=== PATIENT | female | born 1985 | race Caucasian/White ===

== ENCOUNTER 2020-04-16 12:40 | Emergency (ER) | payer OTHER, SELFPAY ==
--- NOTE | ~2020-04-16 | CT_ITS ---
EXAMINATION: CT abdomen pelvis w con DATE: 04/16/2020 14:45 INDICATION: Abdominal pain, nausea, vomiting, fever TECHNIQUE: Computed tomography (CT) of the abdomen and pelvis was performed with 100 cc Omnipaque 350 intravenous contrast. Automated exposure control and iterative reconstruction technique were employe d. Exam dose: 533.74 mGy-cm total exam DLP. COMPARISON: 02/23/2019 CT abdomen FINDINGS: The lung bases are clear. Normal heart size. No pericardial or pleural effusion. Status post cholecystectomy. The liver, spleen, pancreas, and adrenal glands and kidneys appear rose l. No bile duct or pancreatic duct dilatation. No urinary tract calculus or hydroureteronephrosis is evident. The urinary bladder and uterus are unremarkable. 1.5 cm left ovarian cyst. Adnexal areas are otherwise unremarkable. There is minimal likely physiologic free fluid in the cul-de-sac. Normal caliber of the abdominal aorta. No intraperitoneal or retroperitoneal or pelvic mass lesion or adenopathy or ascites. Status post appendectomy. No bowel obstruction. No intraperitoneal free air. Small fat-containing umbilical hernia. Included skeletal structures are unremarkable. IMPRESSION: 1.5 cm left ovarian cyst Status post cholecystectomy Status post appendectomy Reviewed, dictated and finalized at [facility]. Reviewed, dictated and finalized at location A.
[2020-04-16 12:42] VITALS: BP 134/76; PULSE 95; RESP 20; TEMP 36.6; O2SAT 100
[2020-04-16 12:54] LABS: Basophils Absolute Auto 0.1 K/mm3 (0.0-0.1); Basophils Percent Auto 0.6 % (0.2-1.2); Eosinophils Absolute Auto 0.2 K/mm3 (0-0.3); Eosinophils Percent Auto 1.4 % (0-4.4); Hemoglobin 15.1 g/dL (12.0-15.0); Immature Granulocyte Absolute 0.06 K/mm3 (0.00-0.031); Immature Granulocyte Percent A 0.5 % (0-0.5); Lymphocytes Percent Auto 25.4 % (18.3-44.2); Mean Corpuscular HGB Conc 34.3 g/dl (32-36); Mean Corpuscular Volume 87.5 fl (80-100); Mean Platelet Volume 10.1 fl (7.4-10.4); Monocytes Absolute Auto 0.8 K/mm3 (0.1-0.6); Monocytes Percent Auto 6.5 % (2.6-8.5); Neutrophils Absolute Auto 8.3 K/mm3 (1.3-6.7); Neutrophils Percent Auto 65.6 % (45.5-73.1); Platelet Count Result 385 k/mm3 (150-375); Red Blood Count 5.03 M/mm3 (4.2-5.4); Red Cell Distribution Width 12.5 % (11.5-14.5); White Blood Count 12.6 K/mm3 (4.5-10.0)
[2020-04-16 13:09] LABS: Alanine Aminotransferase 16 U/L (4-35); Alkaline Phosphatase 68 U/L (38-126); Anion Gap 13 mmol/L (8-16); Aspartate Amino Transferase 23 U/L (14-36); Bilirubin,Total 0.6 mg/dL (0.2-1.3); Blood Urea Nitrogen 13 mg/dL (7-17); Calcium 10.1 mg/dL (8.4-10.2); Carbon Dioxide 22 mmol/L (22-30); Chloride 106 mmol/L (98-107); Estimated CRCL calculation 95 ml/min; Estimated Glomerular Filt Rate > 60; Glucose 91 mg/dL (65-105); Lipase 99 U/L (23-300); Potassium 4.2 mmol/L (3.4-5.0); Sodium 141 mmol/L (137-145)
[2020-04-16] MEDS: FAMOTIDINE 20 MG/2 ML VIAL IV PUSH (14:07)
[2020-04-16] MEDS: ONDANSETRON INJ 4 MG/2 ML VIAL IV PUSH (14:07)
[2020-04-16] MEDS: SODIUM CHLORIDE 0.9% IV 1,000 ML 999 ML IV CONT (14:07)
[2020-04-16 14:29] LABS: Add Urine Microscopic? YES; Appearance Urine Cloudy (Clear); Bacteria Urine Trace /hpf; Bilirubin Urine Negative (Negative); Blood Urine 1+ (Negative); Color Urine Yellow (Yellow); Glucose Urine UA Negative (Negative); Ketones Urine 1+ mg/dL (Negative); Leukocyte Esterase Ur Negative LEU/UL (Negative); Mucus Urine Heavy /lpf; Nitrate Urine Negative (Negative); Protein Urine 1+ mg/dL (Negative); Squamous Epithelial Cell Urine Many /hpf (Few); Urobilinogen Urine Negative mg/dL (<2.0); WBC Urine 0-3 /hpf
--- NOTE | 2020-04-16 15:39 | ED.GENADULT ---
HPI - General Adult General Chief complaint: Nausea/Vomiting/Diarrhea Stated complaint: Vomiting, Fever Time Seen by Provider: 04/16/20 13:00 Source: patient and family Mode of arrival: ambulatory Limitations: no limitations History of Present Illness HPI narrative: 34-year-old with no major medical problems presents to the ER with complaints of nausea, vomiting, abdominal pain for past few days. Patient states that she was seen at [facility] ER 2 weeks ago for the same had blood work and CAT scan at that time the CT according to the patient showed mild inflammation in the stomach was given prescription for pantoprazole. However again since yesterday she has been having the same symptoms. She also states that she has been constipated. No history of fever or chills. Denies any blood in the vomitus. Onset (ago): day(s) (2) Severity: moderate Quality: aching Pain Consistency: constant Exacerbating factors: none Related Data Allergies Allergy/AdvReac Type Severity Reaction Status Date / Time No Known Allergies Allergy Verified 04/16/20 12:49 Review of Systems Review of Systems: All systems reviewed & are unremarkable except as noted in HPI and below Constitutional: Constitutional: Reports no additional constitutional complaints Eyes: Eyes: Reports no additional eye complaints ENT: Reports system reviewed and no additional complaints, except as documented Cardiovascular: Cardiovascular: Reports no additional cardiovascular complaints Gastrointestinal: Gastrointestinal: Reports no additional gastrointestinal complaints Musculoskeletal: Musculoskeletal: Reports no additional musculoskeletal complaints Neurologic: Reports system reviewed and no additional complaints, except as documented PMFSH Past Medical History Medical History Cholecystectomy planned Surgical History Surgical History Hx of appendectomy Social History Social History Alcohol intake: never Exam Narrative: Exam Narrative: GENERAL: Well-appearing, well-nourished, and in no acute distress. HEAD: Normocephalic, atraumatic. EYES: PERRLA and EOMI. ENT: Nares clear, no rhinorrhea or epistaxis. Mucous membranes moist. NECK: Supple. CHEST: Clear to auscultation. No respiratory distress. HEART: Regular rate and rhythm. No murmur heard. Normal peripheral pulses. ABDOMEN: Soft, mild tenderness in the epigastric area , nondistended, normal active bowel sounds. EXTREMITIES: Normal range of motion. No edema. SKIN: Warm, dry, no rash. NEURO: No focal deficits. Alert and oriented x3. PSYCH: Normal mood and affect. Course Course Emergency Course: After liter of fluid patient started feeling much better, I discussed labs, CT findings with the patient. This time I do not see any evidence of any bowel obstruction, advised her to continue her home medication however patient states that Zofran is making her constipated she wanted different antiemetic. I also recommended her to continue pantoprazole as given by [facility] ER. Also recommended her to follow-up with her primary doctor and GI. Vital Signs Vital signs: Vital Signs Temperature 36.6 C 04/16/20 12:42 Pulse Rate 95 04/16/20 12:42 Respiratory Rate 04/16/20 12:42 Blood Pressure 134/76 04/16/20 12:42 Pulse Oximetry 100 04/16/20 12:42 Temperature 36.6 C 04/16/20 12:42 Pulse Rate 95 04/16/20 12:42 Respiratory Rate 04/16/20 12:42 Blood Pressure 134/76 04/16/20 12:42 Pulse Oximetry 100 04/16/20 12:42 Medical Decision Making Vital Signs Vital Signs: Vital Signs Temperature 36.6 C 04/16/20 12:42 Pulse Rate 95 04/16/20 12:42 Respiratory Rate 04/16/20 12:42 Blood Pressure 134/76 04/16/20 12:42 Pulse Oximetry 100 04/16/20 12:42 Temperature 36.6 C 04/16/20 12:42
[2020-04-16 16:13] VITALS: BP 142/76; PULSE 84; RESP 16; O2SAT 98
== END 2020-04-16 16:13 | disposition home or self-care (01) ==
PROVIDERS: Emergency Provider Family Medicine; PCP Family Medicine
DX: K29.70 Gastritis, unspecified, without bleeding (principal)
CPT/HCPCS: 36415; 74177; 80053; 81001; 81025; 83690; 85025; 96361; 96374; 96375; 99284; J2405; J7030; Q9967

== ENCOUNTER 2020-05-23 10:30 | Outpatient (CLI) | payer OTHER, SELFPAY ==
--- NOTE | ~2020-05-23 | US_ITS ---
EXAMINATION: US abdomen complete EXAM DATE: 05/23/2020 11:04 INDICATION: Incisional hernia, left-sided abdominal pain. Epigastric scar. TECHNIQUE: Multiple grayscale and Doppler images of the complete abdomen were obtained (by a technolo gist who performed the scan) and subsequently reviewed. Correlation is made to CT abdomen the 020. FINDINGS: Scanning in the epigastric scar region demonstrated no hernia, unremarkable subcutaneous fa t. The abdominal aorta is normal in caliber. Visualized portion IVC is patent. The pancreatic head a nd body are normal in appearance. The pancreatic tail is not visualized. The liver has normal echogenicity and contour. There are no focal liver lesions identified. There is no evidence of intrahepatic biliary duct dilation. Portal venous flow was seen in the hepatopedal , normal direction and has normal Doppler waveform. Common bile duct measures 5 mm, which is normal. The gallbladder fossa is unremarkable.. Right kidney: There is normal contour and echogenicity. It measures 9.2 x 4.1 x 5.7 centimeters. T here are no focal renal lesions identified. There is no hydronephrosis. Left kidney: There is normal contour and echogenicity. It measures 10.7 x 4.9 x 4.5 centimeters. T here are no focal renal lesions identified. There is no hydronephrosis. The spleen measures 12.6 centimeters and is morphologically normal. IMPRESSION: 1. Unremarkable complete abdominal ultrasound exam. Reviewed, dictated and finalized at location A. PLASTERER
== END 2020-05-23 10:31 | disposition home or self-care (01) ==
LOC: ANHIMG 10:33
PROVIDERS: PCP Family Medicine; Visit Provider Nurse Practitioner
DX: K43.2 Incisional hernia without obstruction or gangrene (principal)
CPT/HCPCS: 76700

== ENCOUNTER 2021-08-29 15:00 | Outpatient (CLI) | payer BC, SELFPAY ==
--- NOTE | ~2021-08-29 | CT_ITS ---
EXAMINATION: CT soft tissue neck w EXAM DATE: 08/29/2021 15:54 INDICATION: Neck pain. TECHNIQUE: Spiral CT of the neck was performed following intravenous injection of 75 mL Omnipaque 350 . Axial, coronal and sagittal images of the neck were reviewed. The dose-length product (DLP) for t his examination was 545.81 mGy-cm. The exposure was tailored according to patient size (auto mA expo sure control), and iterative reconstruction (ASIR) was used as additional dose reduction technique. There is no prior study for comparison. FINDINGS: There is an aberrant right subclavian artery, a normal congenital variant. The thyroid gl and is unremarkable. The submandibular and parotid glands are symmetric. There is no cervical lym phadenopathy. There are no masses identified. The airway is unremarkable. Parapharyngeal and pr e-glottic fat planes are preserved. The opacified vasculature is patent. The orbits are unremarka ble. Visualized sinuses and mastoid air cells are well aerated. Mild cervical arthropathy. No cer vical endplate erosive change. IMPRESSION: Unremarkable CT neck examination. Reviewed, dictated and finalized at location G. ERSMITH HELPER
== END 2021-08-29 15:01 | disposition home or self-care (01) ==
LOC: ANHIMG 15:02
PROVIDERS: PCP Family Medicine; Visit Provider Family Medicine
DX: M54.2 Cervicalgia (principal)
CPT/HCPCS: 70491; 71260; Q9967

== ENCOUNTER 2021-09-21 09:15 | Emergency (ER) | payer BC, SELFPAY ==
[2021-09-21] VITALS (7 sets, daily range): BP systolic 118–153; BP diastolic 59–91; PULSE 68–98; RESP 16–20; TEMP 36.5–36.8; O2SAT 98–100
--- NOTE | ~2021-09-21 | XR_ITS ---
EXAMINATION: XR ribs RT 2V w CXR 2V DATE: 09/21/2021 10:36 INDICATION: Right upper back pain. TECHNIQUE: Frontal and lateral views of the chest and 2 views on 3 radiographs of the right ribs were obtained. COMPARISON: Chest 2 views 04/14/2010 FINDINGS: CHEST TWO VIEWS: There is mild scarring at the lung apices. No pleural effusion or pneumothorax. The heart size is normal. Surgical clips in the right upper quadrant are likely from cholecystectomy. RIGHT RIBS: There is no rib fracture. IMPRESSION: 1. No rib fracture. Reviewed, dictated and finalized at location A. IMPRESSION: 1. No rib fracture.
[2021-09-21] MEDS: KETOROLAC 30 MG/ML VIAL (*BKC) IV PUSH (10:14)
[2021-09-21] MEDS: SODIUM CHLORIDE 0.9% IV 1,000 ML 999 ML IV CONT (10:15)
[2021-09-21 10:38] LABS: Basophils Absolute Auto 0.1 K/mm3 (0.0-0.1); Basophils Percent Auto 0.5 % (0.2-1.2); Eosinophils Absolute Auto 0.2 K/mm3 (0-0.3); Eosinophils Percent Auto 1.8 % (0-4.4); Hematocrit 40.8 % (37.0-47.0); Hemoglobin 12.9 g/dL (12.0-15.0); Immature Granulocyte Absolute 0.05 K/mm3 (0.00-0.031); Immature Granulocyte Percent A 0.5 % (0-0.5); Lymphocytes Percent Auto 17.3 % (18.3-44.2); Mean Corpuscular HGB Conc 31.6 g/dl (32-36); Mean Corpuscular Hemoglobin 30.4 pg (26-34); Mean Corpuscular Volume 96.2 fl (80-100); Monocytes Absolute Auto 0.5 K/mm3 (0.1-0.6); Monocytes Percent Auto 4.9 % (2.6-8.5); Neutrophils Absolute Auto 7.8 K/mm3 (1.3-6.7); Platelet Count Result 289 k/mm3 (150-375); Red Blood Count 4.24 M/mm3 (4.2-5.4); Red Cell Distribution Width 12.5 % (11.5-14.5); White Blood Count 10.4 K/mm3 (4.5-10.0)
[2021-09-21 10:49] LABS: Alanine Aminotransferase 28 U/L (4-35); Albumin Level 4.3 g/dL (3.5-5.1); Alkaline Phosphatase 59 U/L (38-126); Anion Gap 7 mmol/L (8-16); Aspartate Amino Transferase 25 U/L (14-36); Bilirubin,Total 0.5 mg/dL (0.2-1.3); Blood Urea Nitrogen 12 mg/dL (7-17); Carbon Dioxide 23 mmol/L (22-30); Chloride 108 mmol/L (98-107); Estimated CRCL calculation 94 ml/min; Estimated Glomerular Filt Rate > 60; Glucose 93 mg/dL (65-110); Lipase 61 U/L (23-300); Potassium 4.3 mmol/L (3.4-5.0); Sodium 138 mmol/L (137-145)
[2021-09-21 10:52] LABS: D Dimer 0.38 ug/mL (<0.48)
[2021-09-21] MEDS: diazePAM INJ (*CRX) 10 MG/2 ML SYRINGE (11:22)
--- NOTE | 2021-09-21 12:17 | ED.GENADULT ---
HPI - General Adult General Chief complaint: Unspecified Stated complaint: rib pain Time Seen by Provider: 09/21/21 09:48 History of Present Illness HPI narrative: Patient is a 36-year-old female who presents ER with right-sided back pain. Patient was sitting on the ground leaning forward helping her child get ready for school when she had sudden onset pain. She feels like it radiates towards her abdomen in the right upper quadrant. No nausea or vomiting. Pain is worse with twisting and bending. No numbness or tingling to lower extremities or groin. Reports prior to onset of pain she was having some cramping in her right calf. Patient reports she has history of muscle spasms for which she takes ibuprofen and Flexeril. She has no runny nose or sore throat. She is without cough or dyspnea. No hemoptysis. She is not tachycardic or hypoxic. She is not on any control. Related Data Allergies Allergy/AdvReac Type Severity Reaction Status Date / Time No Known Allergies Allergy Verified 04/16/20 12:49 Review of Systems Review of Systems: All systems reviewed & are unremarkable except as noted in HPI and below Constitutional: Constitutional: Denies chills and Denies fever(s) Cardiovascular: Cardiovascular: Denies chest pain, Denies radiating jaw, neck or arm pain and Denies palpitations Respiratory: Respiratory: Denies cough, Denies dyspnea and Denies wheezing Gastrointestinal: Gastrointestinal: Denies abdominal pain, Denies diarrhea, Denies nausea and Denies vomiting Musculoskeletal: Musculoskeletal: Reports back pain, Denies arthralgias, Reports muscle cramps and Denies neck pain Neurologic: Denies focal weakness and Denies numbness PMFSH Past Medical History Medical History (Updated 09/21/21 @ 12:20 by Aftab Ruiz MD) Cholecystectomy planned Surgical History Surgical History (Updated 09/21/21 @ 19:59 by Aftab Ruiz MD) History of cholecystectomy Hx of appendectomy Social History Social History Alcohol intake: never Exam Narrative: GENERAL: Well-appearing, well-nourished, and in no acute distress. HEAD: Normocephalic, atraumatic. CHEST: Clear to auscultation. No respiratory distress. HEART: Regular rate and rhythm. Normal peripheral pulses. ABDOMEN: Soft, nontender, nondistended. Back: No reproducible midline tenderness of C/T/L-spine. Patient reports paraspinal muscular tenderness around the region of the T9 on the right side without palpable spasm. No bruising or abrasion noted. EXTREMITIES: Normal range of motion. No edema. SKIN: Warm, dry, no rash. NEURO: Alert and oriented x3. PSYCH: Normal mood and affect. Course Course Emergency Course: Patient is received Toradol and Valium for her pain. She still reporting pain in the right back along the paraspinal muscles. Reports is worse with moving. Unable to reproduce with palpation. Patient moving without issue in the room. Patient reports she has been seeing her primary care doctor monthly for 2 years for intermittent pains have been occurring across her entire body. She has been taking her anti-inflammatories and muscle relaxers as prescribed. She reports she is very frustrated the fact that there is no formal diagnosis. I brought up the fact that she may have fibromyalgia and may need referral from her PCP for further evaluation. Patient reports she is always diagnosed with anxiety and became very angry yelling at this physician saying that she may be on the verge of mental breakdown. Asked her if she was suicidal she is not the case. Will give small dose of morphine but do not feel there is anything additional I can do to evaluate this pain. Vital Signs Vital signs: Vital Signs Temperature 97.7 F 09/21/21 09:30 Pulse Rate 98 09/21/21 09:30 Respiratory Rate 16 09/21/21 09:30 Blood Pressure 118/89 09/21/21 09:30 Pulse Oximetry 99 09/21/21 09:30 Tem
[2021-09-21] MEDS: MORPHINE SULFATE (*CRX) 2 MG/ML INJ IV PUSH (12:23)
== END 2021-09-21 13:01 | disposition home or self-care (01) ==
PROVIDERS: Emergency Provider Emergency Medicine; PCP Family Medicine
DX: M54.9 Dorsalgia, unspecified (principal)
CPT/HCPCS: 36415; 71046; 71100; 80053; 83690; 85025; 85380; 96361; 96374; 96375; 99284; J1885; J2270; J3360; J7030

== ENCOUNTER 2022-01-17 13:02 | Outpatient (CLI) | payer BC, SELFPAY ==
--- NOTE | ~2022-01-17 | CT_ITS ---
EXAMINATION: CT soft tissue neck w con DATE: 01/17/2022 14:10 INDICATION: Mass of nasopharynx. TECHNIQUE: Computed tomography (CT) of the neck was performed with 75 mL Omnipaque 300 intravenous co ntrast. Automated exposure control and iterative reconstruction technique were employed. The dose-shobha gth product was 571.30 mGy-cm. COMPARISON: CT neck 08/29/2021 FINDINGS: There is an aberrant right subclavian artery. The cervical carotid arteries are normal. The re are no pathologically enlarged lymph nodes. The pharynx is normal. The adenoids are normal. The ma lex salivary glands are normal. The bones are unremarkable. IMPRESSION: 1. No abnormal mass identified. Reviewed, dictated and finalized at location A.
== END 2022-01-17 13:03 | disposition home or self-care (01) ==
LOC: ANHIMG 13:03
PROVIDERS: PCP Family Medicine; Visit Provider Otolaryngology
DX: H70.90 Unspecified mastoiditis, unspecified ear (principal); H92.01 Otalgia, right ear; J39.2 Other diseases of pharynx
CPT/HCPCS: 70491; Q9967

== ENCOUNTER 2022-02-08 00:53 | Day surgery (SDC) | payer BC, SELFPAY ==
[2022-02-01 15:28] VITALS: BMI 31.0
--- NOTE | 2022-02-01 15:30 | SUR.PREOP ---
Report to the Outpatient Waiting Room, entrance under the green pavilion located off [facility], at time _1100 on date _02/08/22 . OR Time: _1300 . - You and your visitor will be asked a series of questions to screen for COVID 19 for your protection. - Only one visitor is allowed at this time. - The patient visitor is requested to leave or wait in car when not with patient. - A mask is required within the hospital. Patients may have clear liquids (water, carbonated beverages, clear teas, apple juice) until 3 hours prior to surgery with a maximum of 20 ounces. - No food from midnight until time of surgery - Infants may have breast milk until 4 hours before surgery, infant formula 6 hours prior to surgery. - Children will be allowed to drink immediately following surgery. If applicable, please bring a bottle or sippy cup to assist with drinking. Juice, water, soda, and popsicles are readily available. For infants on formula, please bring formula the day of surgery. Pacifiers are allowed. Take the following medications with a SIP of water the morning of surgery: _gabapentin Medications to discontinue per physician __vitamins Date to take last dose_02/05/22 Please no make-up, nail irish, hairspray, perfume, deodorant, or body powder the day of surgery. No jewelry (including any body piercings) or valuables the day of surgery, leave them at home. Please take a shower or bath the night before, or the morning of, surgery with an antibacterial soap. Wear comfortable, loose fitting clothing. Children are encouraged to wear pajamas. - Jewelry must be removed prior to entering the operating room. Rings and piercings that are not removed may be cut off. - The hospital will not accept responsibility for valuables. - Please leave all valuables, including medications, at home the day of surgery. If you are going home after surgery, a licensed swing driver must drive you home. - NO public transportation without another adult. - We recommend that an adult stay with you for 24 hours following discharge. - We also recommend that you do not drive, make important decision, drink alcoholic beverages, or take any drugs that were not prescribed by your health care provider for at least 24 hours after your discharge time. For Pediatric surgeries, we recommend two adults accompany the child home (only one inside the building at this time). Follow any additional instructions given to you from your surgeon. If you or anyone in your household have experienced Covid symptoms in the past week, please notify your surgeon or the nurse liaison at the phone number below for possible testing. Telephone instructions given to zhao hussein_and asked if any additional questions and then verbalized understanding. Patient advised to call surgeon office or pre surgery nurse liaison [phone] if any additional questions.
--- NOTE | 2022-02-07 07:29 | PM.IMHP ---
H&P: HPI History of Present Illness Date/Time: 02/07/22 07:29 Chief Complaint: Adenoiditis nasopharyngeal tumor Narrative: planned surgical procedure [facility] Past Medical History Medical History Cholecystectomy planned Surgical History Surgical History History of cholecystectomy Hx of appendectomy Social History Social History Smoking status: Former smoker Tobacco type: cigarettes Smoking end date: 07/07/14 Additional smoking assessment comments: 1/2 ppd x 12 years cigarettes Alcohol intake: never Substance use: current Substance use type: marijuana Other substance usage details: 2x a week for insomnia smoking Spiritual care concerns: No Meds Home Medications and Allergies Home Medications Medication Instructions Recorded Confirmed Type atorvastatin 20 mg tablet 20 mg PO DAILY 11/27/21 02/01/22 History cholecalciferol (vitamin D3) 1,250 1,250 mcg PO WEEKLY 11/27/21 02/01/22 History mcg (50,000 unit) tablet (Dialyvite Vitamin D3 Max) cyclobenzaprine 5 mg tablet 5 mg PO PRN PRN Muscle Spasm 11/27/21 02/01/22 History gabapentin 600 mg tablet 600 mg PO BID 11/27/21 02/01/22 History naproxen 500 mg tablet 500 mg PO BID 11/27/21 02/01/22 History Lactobacillus acidophilus 10 10,000 mmu cells PO DAILY 02/01/22 02/01/22 History billion cell capsule (Probiotic) multivitamin 1 cap PO DAILY 02/01/22 02/01/22 History Allergies Allergy/AdvReac Type Severity Reaction Status Date / Time No Known Allergies Allergy Verified 02/01/22 15:08 Exam Narrative: see previous exam note Assessment and Plan Assessment and plan (1) 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 Risks discussed including bleeding infection them to surrounding structures developed pharyngeal insufficiency failure to resolve symptoms as they could be due to glossopharyngeal nerve were C2-C3 abnormality or other abnormality I missed or that was not picked on imaging.
--- NOTE | 2022-02-07 14:34 | WPDANESEPPF ---
Anes - Initial Pre Proc Eval Procedure: Operation Date: 02/08/22 13:00 Proposed Procedures p Transnasal Resection Nasopharyngeal Tumor, Nasal Endoscopy - Ellis De La Cruz MD Date/Time: 02/07/22 14:34 Surgeon: Ellis De La Cruz MD Pre Op Diagnosis: nasal pharyngeal tumor Patient Data Age: 36 Gender: F Height: 1.6 m Weight: 79.54 kg Allergies Allergy/AdvReac Type Severity Reaction Status Date / Time No Known Allergies Allergy Verified 02/01/22 15:08 Home Medications Medication Instructions Recorded Confirmed Type atorvastatin 20 mg tablet 20 mg PO DAILY 11/27/21 02/01/22 History cholecalciferol (vitamin D3) 1,250 1,250 mcg PO WEEKLY 11/27/21 02/01/22 History mcg (50,000 unit) tablet (Dialyvite Vitamin D3 Max) cyclobenzaprine 5 mg tablet 5 mg PO PRN PRN Muscle Spasm 11/27/21 02/01/22 History gabapentin 600 mg tablet 600 mg PO BID 11/27/21 02/01/22 History naproxen 500 mg tablet 500 mg PO BID 11/27/21 02/01/22 History Lactobacillus acidophilus 10 10,000 mmu cells PO DAILY 02/01/22 02/01/22 History billion cell capsule (Probiotic) multivitamin 1 cap PO DAILY 02/01/22 02/01/22 History Patient hx anesthesia problems: none Family hx anesthesia problems: none Results Review: All pre-operative results and documents have been reviewed as part of the pre-operative evaluation. [facility] Past Medical History Medical History (Updated 02/07/22 @ 14:36 by Emerson Norton MD) Cholecystectomy planned Fibromyalgia GERD (gastroesophageal reflux disease) Headache Nasopharyngeal mass Obesity Surgical History Surgical History History of cholecystectomy Hx of appendectomy Social History Social History Smoking status: Former smoker Tobacco type: cigarettes Smoking end date: 07/07/14 Additional smoking assessment comments: 1/2 ppd x 12 years cigarettes Alcohol intake: never Substance use: current Substance use type: marijuana Other substance usage details: 2x a week for insomnia smoking Living arrangements: with family Spiritual care concerns: No Anes - Eval Final PreProcedure Day of Procedure 02/07/22 14:34 Patient weight: obese Heart: regular rate and rhythm Lungs: clear to auscultation and normal air movement Airway: Mallampati scale class II Neurological: alert and oriented Last oral intake: >/= 8 hours ASA classification: II Emergent: no Anesthetic plan: proceed Anesthesia type and monitoring: general ETT Results Review: All pre-operative results and documents have been reviewed as part of the pre-operative evaluation. Informed Consent: The patient's anesthetic plan and its attendant risks and benefits were discussed with the patient/family/POA. Questions were solicited and answers provided to the satisfaction of the patient/family/POA.
[2022-02-08] VITALS (7 sets, daily range): BP systolic 101–138; BP diastolic 66–85; PULSE 63–102; RESP 13–17; TEMP 36.1–36.6; O2SAT 99–100
--- NOTE | 2022-02-08 07:09 | WPDHPUPDATE1 ---
History and Physical Update Update Date/Time: 02/08/22 07:09 History and Physical has been reviewed, including an updated exam of the patient. There are NO changes in the patient's condition. Risks, benefits, and alternatives have been discussed and questions answered. Patient agrees to proceed with procedure.
[2022-02-08] MEDS: ACETAMINOPHEN 500 MG TABLET 1000 MG PO (11:15)
[2022-02-08] MEDS: LACTATED RINGERS 1,000 ML 30 ML IV CONT ×2 (11:29→14:19)
[2022-02-08] MEDS: ceFAZolin 2 GM/D5W 50 ML 2 GM/50 ML BAG IVPB (13:16)
--- NOTE | 2022-02-08 14:10 | W.PM.PROC2 ---
Procedure Note - Detailed Date of Procedure 02/08/22 Pre-op Diagnosis nasal pharyngeal tumor Post-op Diagnosis Same Procedure Performed Nasal endoscopy, transnasal resection nasopharyngeal mass Surgeon Ellis De La Cruz MD Anesthesia General Indications See above Findings Abnormal mass a little bit on the right side scarred down to the shaheed appeared to be adenoid tissue appearing sent for pathologic analysis minimal bleeding Description of Procedure Patient identified consent verified. Patient brought operating room. Time-out performed. General anesthesia induced endotracheal tube secured left lower lip. Patient prepped and draped 2nd time-out performed. degree endoscope utilized nasal endoscopy performed there is a midline to slightly right-sided nasopharyngeal mass looks like adenoid but scarred down to the right shaheed which is abnormal. Afrin-soaked pledgets placed allowed to sit for 5 minutes then removed. Biopsies obtained of the lesion lesion was then micro debrided Bovie suction electrocautery at a setting of 12 utilized to ensure excellent hemostasis. Afrin-soaked pledgets again placed against the lesion for 5 minutes then removed there was no further bleeding. Total blood loss 10 cc. Care the patient turned over to Anesthesiology all hardware all Afrin-soaked pledgets removed patient tolerated the procedure well again total blood loss about 10 cc no complications patient taken to PACU. Estimated Blood Loss -10.0 Drains No Packing No Pathology Yes Complications No immediate complications Condition Stable Disposition PACU
[2022-02-08] MEDS: fentaNYL CITRATE INJ (*CRX) 100 MCG/2 ML VIAL 25 MCG IV PUSH ×6 (14:13→14:55)
[2022-02-08] MEDS: ONDANSETRON INJ 4 MG/2 ML VIAL IV PUSH (15:14)
[2022-02-08] MEDS: diphenhydrAMINE HCl INJ 50 MG/ML VIAL 25 MG IV PUSH (15:33)
[2022-02-08] MEDS: SCOPOLAMINE 1.5 MG PATCH TRANSDERM (15:34)
== END 2022-02-08 16:35 | disposition home or self-care (01) ==
PROVIDERS: PCP Family Medicine; Visit Provider Otolaryngology
PROC: (CPT 42999; principal; 2022-02-08 13:00)
DX: J39.2 Other diseases of pharynx (principal); K21.9 Gastro-esophageal reflux disease without esophagitis; M79.7 Fibromyalgia; Z90.49 Acquired absence of other specified parts of digestive tract; Z87.891 Personal history of nicotine dependence; F12.90 Cannabis use, unspecified, uncomplicated; E66.9 Obesity, unspecified; Z68.31 Body mass index [BMI] 31.0-31.9, adult
CPT/HCPCS: 42999; 88184; 88304; 88333; A9270; J0690; J1200; J2250; J2405; J3010; J7120

== ENCOUNTER 2022-02-24 10:24 | Outpatient (CLI) | payer BC, SELFPAY ==
--- NOTE | ~2022-02-24 | MR_ITS ---
EXAMINATION: MR brain/brain stem wo/w con DATE: 02/24/2022 11:13 INDICATION: Daily persistent headache. TECHNIQUE: Magnetic resonance imaging (MRI) of the brain and brainstem was performed without and with 15 mL MultiHance intravenous contrast. COMPARISON: Neck CT 01/17/2022 FINDINGS: There is no intracranial hemorrhage, acute infarction, or abnormal intracranial mass lesion . The ventricles are normal in size. The paranasal sinuses are clear. The orbits are normal. The mast oid air cells are normal. IMPRESSION: 1. Normal brain. Reviewed, dictated and finalized at location A. IMPRESSION: 1. Normal brain.
== END 2022-02-24 10:25 | disposition home or self-care (01) ==
PROVIDERS: PCP Family Medicine; Visit Provider Student in an Organized Health Care Education/Training Program
DX: R51.9 Headache, unspecified (principal)
CPT/HCPCS: 70553; A9577

== ENCOUNTER 2022-02-28 13:36 | Outpatient (RCR) | payer BC, SELFPAY ==
--- NOTE | 2022-03-04 17:44 | PCPTNOTE ---
Patient called & cancelled scheduled appointment this date due to getting MRI.
--- NOTE | 2022-03-05 11:53 | BUPTOPEVAL1 ---
Evaluation Information Assessment Status Evaluation Diagnosis chronic headaches Onset 1 year Subjective Information Pt states she has been having migraines for the last year. She has been to an oral surgeon, ENT, and a neurologist. Pt states she started seeing her PCP originally because she thought she had an ear infection. Since then she has been to every type of specialist. Pt states this started about a year ago when she started seeing a chiropractor. Pt reports constant headaches, daily. Reported Pain Level Pain Score 4: Self Report Assessment PT Clinical Summary Keren is a 36 y/o female who presents to therapy today with a diagnosis of chronic headaches. She reports ruling out multiple other mechanisms for her pain. Today she demonstrates decreased active and passive cervical rotation and lateral flexion in both directions, each limited by pain. She has positive tenderness to palpation in her R SCM, upper traps, and scalenes. Skilled physical therapy services are indicated to address the deficits noted above, to manage pain, to strength cervical motion, to improve posture, and to limit functional impairments. Plan of Care Interventions Electrical Stimulation,Hot Pack/Cold Pack,Manual Therapy,Mechanical Traction,Neuro Re-education, Patient/Caregiver Educati,Therapeutic Activities, Therapeutic Exercise PT Services Indicated Yes Treatment Frequency and 1x/wk for 4 wks or until goals are met Duration These treatments will address the objective and functional deficits as defined above. The patient will be advanced safely and appropriately in order for the patient to progress towards his/her prior level of function. Additional exercises will be introduced and as well as a comprehensive home exercise program upon discharge, if needed, ?to ensure carryover of functional gains achieved in the clinic. This treatment plan has been reviewed and agreement upon by the patient.
--- NOTE | 2022-04-09 09:02 | PCPTNOTE ---
Called and left voicemail with patient regarding inactivity on her chart. Stated in voicemail that she will need to follow up with the clinic in the next week or she will be discharged.
--- NOTE | 2022-04-16 13:45 | PTOPDC ---
Assessment and note entered by Grant Callejas, PT, DPT Evaluation Information Assessment Status Discharge - Pt Not Present Diagnosis chronic headaches Onset 1 year Subjective Information Called pt last week and left voicemail regarding inactivity with her chart. Left voicemail for her to call and contact the clinic within the week if she needed to continue therapy. She has not called . Assessment PT Clinical Summary Keren attended her initial evaluation on 02/28/22 and has not returned since. Skilled will be discharged from therapy services at this time. If she needs to return at a later date, she will need a new order. Plan of Care Treatment Frequency and to be discharged Duration
== END 2022-04-16 15:04 | disposition home or self-care (01) ==
LOC: ANHPT 13:36
PROVIDERS: PCP Family Medicine; Visit Provider Student in an Organized Health Care Education/Training Program
DX: R29.898 Other symptoms and signs involving the musculoskeletal system (principal); R51.9 Headache, unspecified
CPT/HCPCS: 97110; 97140; 97161

== ENCOUNTER 2022-03-01 17:26 | Emergency (ER) | payer BC, SELFPAY ==
--- NOTE | ~2022-03-01 | CT_ITS ---
EXAMINATION: CT abdomen pelvis w con DATE: 03/01/2022 21:07 INDICATION: Abdominal pain TECHNIQUE: Computed tomography (CT) of the abdomen and pelvis was performed with 100 mL Omnipaque-350 intravenous contrast. Automated exposure control and iterative reconstruction technique were employe d. The dose-length product was 441.25 mGy-cm. COMPARISON: 04/16/2020 FINDINGS: Lung bases are clear. Heart size is normal. No pericardial or pleural effusion. Cholecystectomy clips at the gallbladder fossa. Liver, spleen, pancreas, bilateral adrenal glands and kidneys are normal. And visualized appendix with suture line at the tip the cecum and a few adjacent surgical clips consi stent with prior appendectomy. Bowels are otherwise normal with no obstruction. Bladder is normal. T- shaped IUD in expected position within the anteverted uterus. Right adnexa is unremarkable. 3.6 cm le ft ovarian cyst/follicle. Likely tubal ligation rings at the left and right sides of the broad ligame nt. Minimal likely physiologic free fluid in the cul-de-sac. No pathologically enlarged abdominal or pelvic lymphadenopathy. Small fat-containing umbilical hernia. Bones are unremarkable. IMPRESSION: 1. 3.6 cm left ovarian cyst/follicle and minimal likely physiologic free fluid in the pelvis. No othe r acute intra-abdominal/pelvic process. 2. Postoperative changes of prior appendectomy and cholecystectomy. 3. IUD and bilateral tubal ligation rings.. Reviewed, dictated and finalized at location A. IMPRESSION: 1. 3.6 cm left ovarian cyst/follicle and minimal likely physiologic free fluid in the pelvis. No other acute intra-abdominal/pelvic process. 2. Postoperative changes of prior appendectomy and cholecystectomy. 3. IUD and bilateral tubal ligation rings..
[2022-03-01 17:49] VITALS: BP 148/98; PULSE 104; RESP 16; TEMP 36.6; O2SAT 100
[2022-03-01 18:13] LABS: Basophils Absolute Auto 0.1 K/mm3 (0.0-0.1); Basophils Percent Auto 0.5 % (0.2-1.2); Eosinophils Absolute Auto 0.1 K/mm3 (0-0.3); Eosinophils Percent Auto 1.3 % (0-4.4); Hematocrit 41.2 % (37.0-47.0); Hemoglobin 13.9 g/dL (12.0-15.0); Immature Granulocyte Absolute 0.04 K/mm3 (0.00-0.031); Immature Granulocyte Percent A 0.4 % (0-0.5); Lymphocytes Absolute Auto 2.33 K/mm3 (0.9-3.2); Lymphocytes Percent Auto 22.9 % (18.3-44.2); Mean Corpuscular HGB Conc 33.7 g/dl (32-36); Mean Platelet Volume 9.7 fl (7.4-10.4); Monocytes Absolute Auto 0.7 K/mm3 (0.1-0.6); Monocytes Percent Auto 6.8 % (2.6-8.5); Neutrophils Absolute Auto 6.9 K/mm3 (1.3-6.7); Neutrophils Percent Auto 68.1 % (45.5-73.1); Platelet Count Result 365 k/mm3 (150-375); Red Blood Count 4.63 M/mm3 (4.2-5.4); Red Cell Distribution Width 12.9 % (11.5-14.5); White Blood Count 10.2 K/mm3 (4.5-10.0)
[2022-03-01 18:14] LABS: Appearance Urine Clear (Clear); Bilirubin Urine 1+ (Negative); Blood Urine 2+ (Negative); Color Urine Yellow (Yellow); Glucose Urine UA Negative (Negative); Ketones Urine 4+ mg/dL (Negative); Leukocyte Esterase Ur Negative LEU/UL (Negative); Nitrate Urine Negative (Negative); Protein Urine Negative (Negative); Specific Grav Ur 1.025 (1.001-1.035); Urobilinogen Urine 0.2 mg/dL (<2.0)
[2022-03-01 18:24] LABS: Alanine Aminotransferase 25 U/L (6-35); Albumin Level 5.2 g/dL (3.5-5.1); Alkaline Phosphatase 59 U/L (38-126); Anion Gap 13 mmol/L (8-16); Aspartate Amino Transferase 27 U/L (14-36); Bilirubin,Total 0.7 mg/dL (0.2-1.3); Blood Urea Nitrogen 15 mg/dL (7-17); Calcium 9.8 mg/dL (8.4-10.2); Carbon Dioxide 18 mmol/L (22-30); Chloride 105 mmol/L (98-107); Estimated CRCL calculation 83 ml/min; Estimated Glomerular Filt Rate > 60; Glucose 96 mg/dL (65-110); Lipase 82 U/L (23-300); Potassium 3.9 mmol/L (3.4-5.0); Sodium 136 mmol/L (137-145)
[2022-03-01 18:32] LABS: Add Urine Microscopic? YES; Mucus Urine Few /lpf; Squamous Epithelial Cell Urine Many /hpf (Few)
[2022-03-01 19:58] VITALS: BP 147/96; PULSE 122; RESP 18; TEMP 36.9; O2SAT 100
--- NOTE | 2022-03-01 21:45 | ED.GENADULT ---
HPI - General Adult General Chief complaint: Abdominal Pain Stated complaint: abd pain Time Seen by Provider: 03/01/22 20:02 History of Present Illness HPI narrative: Patient is a 36-year-old female who presents the emergency department with chief complaint of abdominal pain. Patient reports that she has pain in the left lower quadrant reports that this been going on for couple days reports is not improved by anything reports that she called her regular provider today they recommended she come to the emergency department to be evaluated. Related Data Home Medications Medication Instructions Recorded Confirmed atorvastatin 20 mg tablet 20 mg PO DAILY 11/27/21 02/19/22 cholecalciferol (vitamin D3) 1,250 1,250 mcg PO WEEKLY 11/27/21 02/19/22 mcg (50,000 unit) tablet (Dialyvite Vitamin D3 Max) gabapentin 600 mg tablet 600 mg PO BID 11/27/21 02/19/22 Lactobacillus acidophilus 10 10,000 mmu cells PO DAILY 02/01/22 02/19/22 billion cell capsule (Probiotic) multivitamin 1 cap PO DAILY 02/01/22 02/19/22 naproxen sodium 220 mg capsule 220 mg PO BID PRN 02/19/22 02/19/22 (Aleve) Allergies Allergy/AdvReac Type Severity Reaction Status Date / Time No Known Allergies Allergy Verified 03/01/22 19:57 Review of Systems Review of Systems: A 10 system review of systems was completed on the patient and is negative except for what is stated in the HPI. Nursing and ancillary documentation was reviewed. PMFSH Past Medical History Medical History Anxiety Anxiety Benign neoplasm of adenoid tissue Cholecystectomy planned Fibromyalgia GERD (gastroesophageal reflux disease) Headache Headache Nasopharyngeal mass Obesity Surgical History Surgical History History of cholecystectomy Hx of appendectomy Social History Social History Smoking status: Former smoker Tobacco type: cigarettes Smoking end date: 07/07/14 Additional smoking assessment comments: 1/2 ppd x 12 years cigarettes Alcohol intake: never Substance use: current Substance use type: marijuana Other substance usage details: 2x a week for insomnia smoking Gender identity (if verbalized by the patient): Female Sexual Orientation (if Verbalized by the Patient): Straight or Heterosexual Spiritual care concerns: No Exam Narrative: GENERAL: Well-appearing, well-nourished, and in no acute distress. HEAD: Normocephalic, atraumatic. EYES: PERRLA and EOMI. ENT: Nares clear, no rhinorrhea or epistaxis. Mucous membranes moist. NECK: Supple. CHEST: Clear to auscultation. No respiratory distress. HEART: Regular rate and rhythm. No murmur heard. Normal peripheral pulses. ABDOMEN: Soft, tenderness to palpation the left lower quadrant,, nondistended, normal active bowel sounds. EXTREMITIES: Normal range of motion. No edema. SKIN: Warm, dry, no rash. NEURO: No focal deficits. Alert and oriented x3. PSYCH: Normal mood and affect. Course Course Emergency Course: CT scan of the abdomen pelvis showed evidence of a ovarian cyst with a slight amount of free fluid. Urinalysis showed 4-6 white blood cells but many squamous and negative for leukocyte esterase and negative nitrate Vital Signs Vital signs: Vital Signs Temperature 36.6 C 03/01/22 17:49 Pulse Rate 104 H 03/01/22 17:49 Respiratory Rate 16 03/01/22 17:49 Blood Pressure 148/98 H 03/01/22 17:49 Pulse Oximetry 100 03/01/22 17:49 Oxygen Delivery Room Air 03/01/22 17:49 Temperature 36.9 C 03/01/22 19:58 Pulse Rate 122 H 03/01/22 19:58 Respiratory Rate 18 03/01/22 19:58 Blood Pressure 147/96 H 03/01/22 19:58 Pulse Oximetry 100 03/01/22 19:58 Oxygen Delivery Room Air 03/01/22 17:49 Medical Decision Making Vital Signs Vital Signs: Vital Signs Temperature 36.
[2022-03-01 22:23] VITALS: BP 126/90; PULSE 107; RESP 20; O2SAT 95
== END 2022-03-01 22:25 | disposition home or self-care (01) ==
PROVIDERS: Emergency Medicine; Emergency Provider Emergency Medicine; PCP Family Medicine
DX: N83.202 Unspecified ovarian cyst, left side (principal); M79.7 Fibromyalgia; K21.9 Gastro-esophageal reflux disease without esophagitis; E66.9 Obesity, unspecified; Z68.28 Body mass index [BMI] 28.0-28.9, adult; Z87.891 Personal history of nicotine dependence
CPT/HCPCS: 36415; 74177; 80053; 81001; 81025; 83690; 85025; 99284; Q9967

== ENCOUNTER 2022-03-10 08:26 | Outpatient (CLI) | payer BC, SELFPAY ==
--- NOTE | ~2022-03-10 | MR_ITS ---
EXAMINATION: MR orbits face neck wo/w con DATE: 03/10/2022 09:19 INDICATION: Neck pain. TECHNIQUE: Magnetic resonance imaging (MRI) of the neck was performed without and with 15 mL MultiHan ce intravenous contrast. COMPARISON: CT neck 01/17/2022 FINDINGS: The major salivary glands are normal. There are no pathologically enlarged lymph nodes. The pharynx and larynx are normal. There is an aberrant right subclavian artery. The musculature is norm al. The orbits are normal. There is mild mucosal thickening in the ethmoid sinuses. The mastoid air c ells are normal. Vertebral body heights and intervertebral disc heights are normal. IMPRESSION: 1. No specific etiology for the patient's symptoms. Reviewed, dictated and finalized at location A.
== END 2022-03-10 08:27 | disposition home or self-care (01) ==
LOC: ANHIMG 08:29
PROVIDERS: PCP Family Medicine; Visit Provider Student in an Organized Health Care Education/Training Program
DX: M54.2 Cervicalgia (principal); J39.2 Other diseases of pharynx
CPT/HCPCS: 70543; A9577

== ENCOUNTER 2022-03-11 09:41 | Emergency (ER) | payer BC, SELFPAY ==
--- NOTE | ~2022-03-11 | CT_ITS ---
EXAMINATION: CT abdomen pelvis wo con DATE: 03/11/2022 12:22 INDICATION: Left lower quadrant abdominal pain. Nausea and vomiting. TECHNIQUE: Computed tomography (CT) of the abdomen and pelvis was performed without intravenous contr ast. Automated exposure control and iterative reconstruction technique were employed. The dose-length product was 466.42 mGy-cm. COMPARISON: CT abdomen and pelvis 03/01/2022 FINDINGS: The visualized portions of the lung bases are clear without pneumonia or pleural effusion. The heart size is normal. No pericardial effusion. The liver is normal. There are changes of cholecys tectomy. The spleen, pancreas, adrenal glands, and kidneys are normal. There is no urolithiasis. Ther e is an intrauterine device in expected position. There are no dilated loops of bowel. There are hartley ges of appendectomy. There is a small umbilical hernia containing fat. There are no pathologically en larged lymph nodes. There is no free intraperitoneal fluid. There is a 2.1 cm hyperdense mass in left ovary with interval decrease in size, consistent with a hemorrhagic cyst. There is mild lumbar spond ylosis. IMPRESSION: 1. 2.1 cm hemorrhagic cyst in left ovary. Reviewed, dictated and finalized at location A.
[2022-03-11 09:41] VITALS: BP 122/82; PULSE 76; RESP 18; TEMP 37; O2SAT 98
--- NOTE | 2022-03-11 10:11 | ED.ABDPAIN ---
HPI - Abdominal Pain General Chief Complaint: Abdominal Pain Stated Complaint: LLQ PAIN Source: RN notes reviewed History of Present Illness HPI narrative: Patient presents emergency room from home for abdominal pain. Patient dates pain is in the left lower quadrant does not radiate. Described as sharp and stabbing. Associated with nausea and vomiting. Patient states the pain began this morning. States she was seen here approximately 1 week ago and diagnosed with a left ovarian cyst at that time. States she has been seen her PCP for this she denies any fevers or chills diarrhea or any other symptoms states she not taking medication for the symptoms at home Related Data Home Medications Medication Instructions Recorded Confirmed atorvastatin 20 mg tablet 20 mg PO DAILY 11/27/21 02/19/22 cholecalciferol (vitamin D3) 1,250 1,250 mcg PO WEEKLY 11/27/21 02/19/22 mcg (50,000 unit) tablet (Dialyvite Vitamin D3 Max) gabapentin 600 mg tablet 600 mg PO BID 11/27/21 02/19/22 Lactobacillus acidophilus 10 10,000 mmu cells PO DAILY 02/01/22 02/19/22 billion cell capsule (Probiotic) multivitamin 1 cap PO DAILY 02/01/22 02/19/22 naproxen sodium 220 mg capsule 220 mg PO BID PRN Back Pain 02/19/22 02/19/22 (Aleve) Allergies Allergy/AdvReac Type Severity Reaction Status Date / Time No Known Allergies Allergy Verified 03/11/22 09:52 Review of Systems Review of Systems: Gen.: Denies fevers or chills ENT: Denies congestion Respiratory: Denies shortness of breath or cough CV: Denies chest pain or palpitations GI: See HPI denies burning, urgency, frequency or hematuria Musculoskeletal: Denies back pain or muscle pain Neuro: Denies numbness, tingling, weakness or focal weakness Skin: Denies rash Except as documented, all other systems reviewed and negative PMFSH Past Medical History Medical History Anxiety Anxiety Benign neoplasm of adenoid tissue Cholecystectomy planned Fibromyalgia GERD (gastroesophageal reflux disease) Headache Headache Nasopharyngeal mass Obesity Surgical History Surgical History History of cholecystectomy Hx of appendectomy Social History Social History Smoking status: Former smoker Tobacco type: cigarettes Smoking end date: 07/07/14 Additional smoking assessment comments: 1/2 ppd x 12 years cigarettes Alcohol intake: never Substance use: current Substance use type: marijuana Other substance usage details: 2x a week for insomnia smoking Gender identity (if verbalized by the patient): Female Sexual Orientation (if Verbalized by the Patient): Straight or Heterosexual Spiritual care concerns: No Exam Narrative: APPEARANCE: No acute distress, nontoxic, resting in bed HEENT: Normocephalic, atraumatic, OMM RESPIRATORY: No respiratory distress, clear to auscultation bilaterally with no rhonchi wheezing or rales CARDIOVASCULAR: RRR s murmur ABDOMINAL: Soft nondistended tender palpation left lower quadrant no tenderness left upper quadrant, right upper quadrant right lower quadrant no rebound or guarding MUSCULOSKELETAl: Moves all extremities. No clubbing, cyanosis or edema. NEURO: Awake and alert. Following commands, speech normal, no focal deficits SKIN:: Warm, dry. Normal Color PSYCHIATRIC: Normal affect/mood Course Course Emergency Course: Secondary to Labor holiday ultrasound is not available today initial CT scan of the abdomen pelvis of ordered with IV contrast the patient does not wish to have IV contrast because never she gets contrast she gets pain up in her face will obtain a CT of the abdomen pelvis without contrast Patient states that they are feeling much better at this time. States abdominal pain has resolved. Repeat abdominal exam shows the patient's abdomen to be soft and nont
[2022-03-11] MEDS: ONDANSETRON INJ 4 MG/2 ML VIAL IV PUSH (10:18)
[2022-03-11] MEDS: SODIUM CHLORIDE 0.9% IV 1,000 ML 999 ML IV CONT (10:18)
[2022-03-11] MEDS: KETOROLAC 30 MG/ML VIAL (*BKC) IV PUSH (10:19)
[2022-03-11 10:22] LABS: Basophils Absolute Auto 0.1 K/mm3 (0.0-0.1); Basophils Percent Auto 0.8 % (0.2-1.2); Eosinophils Absolute Auto 0.1 K/mm3 (0-0.3); Eosinophils Percent Auto 1.5 % (0-4.4); Hematocrit 38.6 % (37.0-47.0); Immature Granulocyte Absolute 0.03 K/mm3 (0.00-0.031); Immature Granulocyte Percent A 0.5 % (0-0.5); Lymphocytes Absolute Auto 1.64 K/mm3 (0.9-3.2); Lymphocytes Percent Auto 25.3 % (18.3-44.2); Mean Corpuscular HGB Conc 33.7 g/dl (32-36); Mean Corpuscular Hemoglobin 30.1 pg (26-34); Mean Corpuscular Volume 89.4 fl (80-100); Mean Platelet Volume 9.9 fl (7.4-10.4); Monocytes Absolute Auto 0.4 K/mm3 (0.1-0.6); Monocytes Percent Auto 6.3 % (2.6-8.5); Neutrophils Absolute Auto 4.3 K/mm3 (1.3-6.7); Neutrophils Percent Auto 65.6 % (45.5-73.1); Platelet Count Result 327 k/mm3 (150-375); Red Blood Count 4.32 M/mm3 (4.2-5.4); White Blood Count 6.5 K/mm3 (4.5-10.0)
[2022-03-11 10:25] LABS: Appearance Urine Clear (Clear); Bilirubin Urine Negative (Negative); Blood Urine 1+ (Negative); Color Urine Yellow (Yellow); Glucose Urine UA Negative (Negative); Ketones Urine Negative (Negative); Leukocyte Esterase Ur Negative LEU/UL (Negative); Nitrate Urine Negative (Negative); Protein Urine Negative (Negative); Specific Grav Ur 1.015 (1.001-1.035); Urobilinogen Urine 0.2 mg/dL (<2.0)
[2022-03-11 10:28] LABS: Alanine Aminotransferase 28 U/L (6-35); Albumin Level 4.6 g/dL (3.5-5.1); Alkaline Phosphatase 49 U/L (38-126); Anion Gap 10 mmol/L (8-16); Aspartate Amino Transferase 24 U/L (14-36); Bilirubin,Total 0.7 mg/dL (0.2-1.3); Blood Urea Nitrogen 10 mg/dL (7-17); Calcium 9.8 mg/dL (8.4-10.2); Carbon Dioxide 21 mmol/L (22-30); Chloride 109 mmol/L (98-107); Estimated CRCL calculation 83 ml/min; Estimated Glomerular Filt Rate > 60; Glucose 96 mg/dL (65-110); Lipase 45 U/L (23-300); Potassium 3.9 mmol/L (3.4-5.0); Sodium 140 mmol/L (137-145)
[2022-03-11 10:56] LABS: Add Urine Microscopic? YES
[2022-03-11 10:57] LABS: Bacteria Urine Trace /hpf; Mucus Urine Rare /lpf; Squamous Epithelial Cell Urine Occasional /hpf (Few); WBC Urine 0-3 /hpf (0-3)
[2022-03-11] MEDS: MORPHINE SULFATE (*CRX) 4 MG/ML INJ IV PUSH (12:38)
[2022-03-11 12:44] VITALS: BP 125/77; PULSE 82; RESP 20; O2SAT 98
== END 2022-03-11 13:45 | disposition home or self-care (01) ==
PROVIDERS: Emergency Provider Emergency Medicine; PCP Family Medicine
DX: N83.202 Unspecified ovarian cyst, left side (principal); M79.7 Fibromyalgia; K21.9 Gastro-esophageal reflux disease without esophagitis; E66.9 Obesity, unspecified; Z68.28 Body mass index [BMI] 28.0-28.9, adult; Z87.891 Personal history of nicotine dependence
CPT/HCPCS: 36415; 74176; 80053; 81001; 81025; 83690; 85025; 96361; 96374; 96375; 99284; J1885; J2270; J2405; J7030

== ENCOUNTER 2022-03-12 14:02 | Outpatient (CLI) | payer BC, SELFPAY ==
--- NOTE | ~2022-03-12 | MM_ITS ---
EXAMINATION: MM diagnostic shanita BI w angel HISTORY: Breast pain. Left breast lump. TECHNIQUE: ML, MLO and CC 3-D tomosynthesis images of both breasts were performed and synthetic 2-D i mages were generated. CAD analysis was submitted and interpreted. COMPARISON: None BREAST PARENCHYMAL COMPOSITION: The breasts are extremely dense, which lowers the sensitivity of mamm ography. FINDINGS: Possible partially circumscribed largely obscured approximately 11 mm mass in the lower out er right breast (MLO Tomosynthesis image 29/60).The very dense stroma may obscure masses in either br east. Bilateral complete breast ultrasound examination is recommended given the limitations of mammog koko in dense breasts. No malignant calcification, or architectural distortion, skin thickening or retraction is noted. IMPRESSION: 1. Extremely dense stroma which may obscure masses 2. Bilateral complete breast ultrasound examination is recommended BI-RADS Category 0: Incomplete: Needs additional imaging evaluation. Reviewed, dictated and finalized at location A.
== END 2022-03-12 14:03 | disposition home or self-care (01) ==
PROVIDERS: PCP Family Medicine; Visit Provider Nurse Practitioner Obstetrics & Gynecology
DX: N64.4 Mastodynia (principal); R92.8 Other abnormal and inconclusive findings on diagnostic imaging of breast
CPT/HCPCS: 77062; 77066; G0279

== ENCOUNTER 2022-03-13 10:03 | Outpatient (CLI) | payer BC, SELFPAY ==
--- NOTE | ~2022-03-13 | US_ITS ---
US breast LT complete DATE: 03/13/2022 10:39 INDICATION: Pain and burning left breast for one month Extremely dense mammographic stroma which may obscure masses TECHNIQUE: High-resolution ultrasound imaging of the left breast including all 4 quadrants and subare olar areas COMPARISON: 9 size 12/2021 bilateral diagnostic mammography FINDINGS: No suspicious mass or shadowing or cyst or other significant sonographic finding of the lef t breast is noted. IMPRESSION: BI-RADS Category 1: Negative Reviewed, dictated and finalized at Location A. Reviewed, dictated and finalized at location A.
== END 2022-03-13 10:04 | disposition home or self-care (01) ==
LOC: ANHIMG 10:08
PROVIDERS: PCP Family Medicine; Visit Provider Nurse Practitioner Obstetrics & Gynecology
DX: N64.4 Mastodynia (principal); N63.20 Unspecified lump in the left breast, unspecified quadrant
CPT/HCPCS: 76641

== ENCOUNTER 2022-03-14 16:37 | Outpatient (CLI) | payer BC, SELFPAY ==
--- NOTE | ~2022-03-14 | US_ITS ---
EXAMINATION: US pelvic complete DATE: 03/14/2022 17:19 INDICATION: Abnormal weight loss. Unspecified abdominal and pelvic pain. TECHNIQUE: Multiple transabdominal sonographic images of the pelvis were obtained. COMPARISON: 03/11/2022 FINDINGS: The anteverted uterus measures 6.6 x 5.2 x 3.3 cm. The endometrial complex measures 3-4 mm in thickn ess. Linear T-shaped echogenic and shadowing IUD within the endometrial canal. The right ovary measur es 2.4 x 1.6 x 2.2 cm. The left ovary measures 2.8 x 2.4 x 1.7 cm. Vascular flow identified in both o varies on color Doppler. There is no free fluid in the pelvis. IMPRESSION: 1. IUD in expected position within the endometrial canal. Otherwise normal pelvic ultrasound. Reviewed, dictated and finalized at location A. IMPRESSION: 1. IUD in expected position within the endometrial canal. Otherwise normal pelv ic ultrasound.
== END 2022-03-14 16:38 | disposition home or self-care (01) ==
PROVIDERS: PCP Family Medicine; Visit Provider Nurse Practitioner Adult Health
DX: R63.4 Abnormal weight loss (principal); R10.9 Unspecified abdominal pain; N83.202 Unspecified ovarian cyst, left side; Z97.5 Presence of (intrauterine) contraceptive device
CPT/HCPCS: 76856

== ENCOUNTER 2022-06-12 10:39 | Emergency (ER) | payer BC, SELFPAY ==
[2022-06-12] VITALS (16 sets, daily range): BP systolic 108–126; BP diastolic 62–83; PULSE 78–105; RESP 14–18; TEMP 36.3; O2SAT 96–100
--- NOTE | ~2022-06-12 | US_ITS ---
EXAMINATION: US pelvic complete w TV DATE: 06/12/2022 15:38 INDICATION: RLQ pain, hsx of cyst, r/o torsion TECHNIQUE: Multiple transabdominal and endovaginal sonographic images of the pelvis were obtained. COMPARISON: Ultrasound pelvis 03/14/2022 CT abdomen and pelvis, 06/12/2022. FINDINGS: Uterus: 7.4 x 3.3 x 4.1 cm. IUD, in good position. Heterogeneous material in the endocervical canal l ikely related to the history of spotting. Likely additional nabothian cysts in the cervix. Endometria l complex measures 5 mm. Right Ovary: 3.1 x 1.7 x 1.7 cm. Vascular flow is present. Simple cysts/follicles measuring up to 1.8 cm Left Ovary: 3.2 x 1.7 x 1.7 cm. Vascular flow is present. Simple cysts/follicles measuring up to 1.5 cm. There is no free fluid in the pelvis. IMPRESSION: Normal pelvic sonogram findings. Reviewed, dictated and finalized at location K. [employer] TECHNICIAN
--- NOTE | ~2022-06-12 | CT_ITS ---
EXAMINATION: CT abdomen pelvis wo con DATE: 06/12/2022 12:47 INDICATION: Right lower quadrant pain. History of kidney disease. TECHNIQUE: Computed tomography (CT) of the abdomen and pelvis was performed without intravenous contr ast. The dose-length product was 337.09 mGy-cm. Automated exposure control and iterative reconstructi on technique were employed. COMPARISON: CT dated 03/11/2022. FINDINGS: Lung bases are unremarkable. Heart size normal. No significant pleural or pericardial effus ion. There is an IUD in the uterus. There are changes of appendectomy. No significant vascular abnorm ality. No lymphadenopathy. There is a small fat-containing umbilical hernia. The liver, spleen, pancr eas, adrenal glands and kidneys are unremarkable. There are cholecystectomy clips. No renal stones or hydronephrosis. No acute osseous abnormality. No free air or free fluid. Nonobstructive bowel patter n. No abnormal pelvic masses or fluid collections. No significant vascular abnormality. No lymphadeno maddie. IMPRESSION: 1. No acute abdominal abnormality. Reviewed, dictated and finalized at location A. [facility]
[2022-06-12 11:08] LABS: Appearance Urine Clear (Clear); Bilirubin Urine 1+ (Negative); Blood Urine Trace-intact (Negative); Color Urine Yellow (Yellow); Glucose Urine UA Negative (Negative); Ketones Urine Negative (Negative); Leukocyte Esterase Ur Negative LEU/UL (Negative); Nitrate Urine Negative (Negative); Protein Urine Trace mg/dL (Negative); Specific Grav Ur 1.025 (1.001-1.035); Urobilinogen Urine 0.2 mg/dL (<2.0)
[2022-06-12 11:09] LABS: Basophils Percent Auto 0.4 % (0.2-1.2); Eosinophils Absolute Auto 0.2 K/mm3 (0-0.3); Eosinophils Percent Auto 1.7 % (0-4.4); Hematocrit 39.1 % (37.0-47.0); Hemoglobin 13.3 g/dL (12.0-15.0); Immature Granulocyte Absolute 0.05 K/mm3 (0.00-0.031); Immature Granulocyte Percent A 0.5 % (0-0.5); Lymphocytes Absolute Auto 2.14 K/mm3 (0.9-3.2); Lymphocytes Percent Auto 21.2 % (18.3-44.2); Mean Corpuscular Hemoglobin 30.6 pg (26-34); Mean Corpuscular Volume 89.9 fl (80-100); Mean Platelet Volume 10.8 fl (7.4-10.4); Monocytes Absolute Auto 0.7 K/mm3 (0.1-0.6); Monocytes Percent Auto 6.8 % (2.6-8.5); Neutrophils Percent Auto 69.4 % (45.5-73.1); Platelet Count Result 305 k/mm3 (150-375); Red Blood Count 4.35 M/mm3 (4.2-5.4); Red Cell Distribution Width 12.2 % (11.5-14.5); White Blood Count 10.1 K/mm3 (4.5-10.0)
[2022-06-12 11:17] LABS: Mucus Urine Heavy /lpf; Squamous Epithelial Cell Urine Occasional /hpf (Few); WBC Urine 0-3 /hpf
[2022-06-12 11:20] LABS: Alanine Aminotransferase 13 U/L (6-35); Albumin Level 4.7 g/dL (3.5-5.1); Alkaline Phosphatase 46 U/L (38-126); Anion Gap 5 mmol/L (8-16); Aspartate Amino Transferase 21 U/L (14-36); Bilirubin,Total 0.4 mg/dL (0.2-1.3); Blood Urea Nitrogen 18 mg/dL (7-17); Calcium 9.4 mg/dL (8.4-10.2); Carbon Dioxide 26 mmol/L (22-30); Chloride 106 mmol/L (98-107); Estimated CRCL calculation 72 ml/min; Estimated Glomerular Filt Rate > 60; Glucose 97 mg/dL (65-110); Lipase 59 U/L (23-300); Potassium 4.1 mmol/L (3.4-5.0); Sodium 137 mmol/L (137-145)
[2022-06-12 11:25] LABS: Add Urine Microscopic? YES
[2022-06-12 13:00] LABS: INR 1.1; Prothrombin Time 13.8 Seconds (11.1-14.7)
[2022-06-12 13:01] LABS: Partial Thromboplastin Time 29.4 SECONDS (22.3-36.8)
--- NOTE | 2022-06-12 13:17 | ED.ABDPAIN ---
HPI - Abdominal Pain General Chief Complaint: Abdominal Pain Stated Complaint: RLQ abdominal pain radiating to the right back Time Seen by Provider: 06/12/22 11:53 History of Present Illness HPI narrative: 37-year-old female presented to the emergency department for evaluation of of right back pain that radiates to her right lower quadrant. Patient reports that the lower back pain started few days ago and has since progressed to the right lower quadrant. Patient does have associated nausea and vomiting but denies any diarrhea. Patient denies any blood in her urine. Patient has a prior history of a cholecystectomy and an appendectomy. Related Data Home Medications Medication Instructions Recorded Confirmed atorvastatin 20 mg tablet 20 mg PO DAILY 11/27/21 02/19/22 cholecalciferol (vitamin D3) 1,250 1,250 mcg PO WEEKLY 11/27/21 02/19/22 mcg (50,000 unit) tablet (Dialyvite Vitamin D3 Max) gabapentin 600 mg tablet 600 mg PO BID 11/27/21 02/19/22 Lactobacillus acidophilus 10 10,000 mmu cells PO DAILY 02/01/22 02/19/22 billion cell capsule (Probiotic) multivitamin 1 cap PO DAILY 02/01/22 02/19/22 naproxen sodium 220 mg capsule 220 mg PO BID PRN Back Pain 02/19/22 02/19/22 (Aleve) Allergies Allergy/AdvReac Type Severity Reaction Status Date / Time No Known Allergies Allergy Verified 06/12/22 10:40 Review of Systems Review of Systems: CONSTITUTIONAL: Denies fever, chills, or sweats. EYES: Denies visual changes, redness, or discharge. ENT: Denies rhinorrhea, congestion, sore throat, or otalgia. CARDIOVASCULAR: Denies chest pain, palpitations, or edema. RESPIRATORY: Denies cough or dyspnea. GASTROINTESTINAL: See HPI GENITOURINARY: Denies dysuria or hematuria. SKIN: Denies rash or itching. MUSCULOSKELETAL: Denies back pain, joint pain, or myalgia. NEUROLOGIC: Denies headache, numbness, or weakness. [facility] Past Medical History Medical History Anxiety Anxiety Benign neoplasm of adenoid tissue Cholecystectomy planned Fibromyalgia GERD (gastroesophageal reflux disease) Headache Headache Nasopharyngeal mass Obesity Surgical History Surgical History History of cholecystectomy Hx of appendectomy Social History Social History Smoking status: Former smoker Tobacco type: cigarettes Smoking end date: 07/07/14 Additional smoking assessment comments: 1/2 ppd x 12 years cigarettes Alcohol intake: never Substance use: current Substance use type: marijuana Other substance usage details: 2x a week for insomnia smoking Gender identity (if verbalized by the patient): Female Sexual Orientation (if Verbalized by the Patient): Straight or Heterosexual Spiritual care concerns: No Exam Narrative: APPEARANCE: Well appearing, no pain, no distress, well-nourished. HEAD: normocephalic, atraumatic. EYES: PERRLA/EOMI, conjunctivae clear. NOSE: Normal no drainage NECK: Supple. No adenopathy, no masses. RESPIRATORY: Airway patent, respirations nonlabored. Clear to auscultation bilaterally, no rales, rhonchi, wheezing. CARDIOVASCULAR: Regular rate and rhythm without murmurs rubs or gallops. ABDOMINAL: Soft, nontender, nondistended, normal bowel sounds. No reproducible tenderness to palpation. MUSCULOSKELETAL: Moves all extremities. Strength/ROM intact, No edema, No calf tenderness. NEURO: Alert. Cranial nerves II through XII intact. Grossly intact SKIN: Warm, dry. Normal Color Course Course Emergency Course: Patient was afebrile but does have a minor leukocytosis of 10.1. Patient's CMP is within normal limits. Patient's UA shows no significant evidence of a urinary tract infection. Patient does report some symptoms of UTI so a urine culture was ordered. CT shows no acute abdominal abnormality. Patient has prior history of ovari
[2022-06-12] MEDS: ONDANSETRON INJ 4 MG/2 ML VIAL IV PUSH (14:38)
[2022-06-12] MEDS: HYDROmorphone HCL INJ (*CRX) 1 MG/ML SYR 0.5 MG IV PUSH (14:38)
== END 2022-06-12 16:50 | disposition home or self-care (01) ==
PROVIDERS: Emergency Medicine; Emergency Provider Emergency Medicine; PCP Family Medicine
DX: R10.31 Right lower quadrant pain (principal); M79.7 Fibromyalgia; K21.9 Gastro-esophageal reflux disease without esophagitis; E66.9 Obesity, unspecified; Z68.26 Body mass index [BMI] 26.0-26.9, adult; Z87.891 Personal history of nicotine dependence
CPT/HCPCS: 36415; 74176; 76830; 76856; 80053; 81001; 83690; 85025; 85610; 85730; 96374; 96375; 99284; J1170; J2405

== ENCOUNTER 2022-10-01 01:25 | Day surgery (SDC) | payer BC, SELFPAY ==
[2022-09-23 09:17] VITALS: BMI 25.0
--- NOTE | 2022-09-23 09:25 | PC.NURSE ---
Report to the Outpatient Waiting Room, entrance under the green pavilion located off [facility], at time 0630 on date 10/01/22. Planned Procedure Time: 0830. Time changes happen often and if your time is changed the preop area will call you the afternoon before. - You and your visitor will be asked to self-screen and do not enter if you have any COVID symptoms. - Only one visitor is requested with a max of two and NO children visitors are allowed at this time. - The patient visitor may be requested to leave or wait in car when not with patient due to distancing restrictions. - A mask is optional within the hospital at this time. Patients may have clear liquids (water, carbonated beverages, clear teas, apple juice) until 3 hours prior to surgery with a maximum of 20 ounces. - No food from midnight until time of surgery Take the following medications with a SIP of water the morning of surgery: TYLENOL, FLUOXETINE, TRAMADOL IF NEEDED DO NOT STOP ANY OF YOUR OTHER PRESCRIPTION MEDICATIONS PRIOR TO SURGERY EXCEPT THE FOLLOWING Medications to discontinue per physician: VITAMINS/SUPPLEMENTS Date to take last dose: 09/27/22 Please no make-up, nail fijian, hairspray, perfume, deodorant, or body powder the day of surgery. No jewelry (including any body piercings) or valuables the day of surgery, leave them at home. Please take a shower or bath the night before, or the morning of, surgery with an antibacterial soap. Wear comfortable, loose fitting clothing. - Jewelry must be removed prior to entering the operating room. Rings and piercings that are not removed may be cut off. - The hospital will not accept responsibility for valuables. - Please leave all valuables, including medications, at home the day of surgery. If you are going home after surgery, a licensed experienced truck driver must drive you home. - NO public transportation without another adult if you receive anesthesia. - We recommend that an adult stay with you for 24 hours following discharge. - We also recommend that you do not drive, make important decision, drink alcoholic beverages, or take any drugs that were not prescribed by your health care provider for at least 24 hours after your discharge time. Follow any additional instructions given to you from your surgeon. If you or anyone in your household have experienced Covid symptoms in the past week, please notify your surgeon or the nurse liaison at the phone number below for possible testing. Telephone instructions given to PT - REYNOLD MILLS and asked if any additional questions and then verbalized understanding. Patient advised to call surgeon office or pre surgery nurse liaison [phone] if any additional questions.
--- NOTE | 2022-09-30 15:14 | WPDANESEPPF ---
Anes - Initial Pre Proc Eval Procedure: Operation Date: 10/01/22 08:30 Proposed Procedures p Tonsillectomy And Adenoidectomy - Ellis De La Cruz MD Date/Time: 09/30/22 15:14 Surgeon: Ellis De La Cruz MD Pre Op Diagnosis: Hypertrophic Tonsils and Adenoids Patient Data Age: 37 Gender: F Height: 1.65 m Weight: 68.04 kg Allergies Allergy/AdvReac Type Severity Reaction Status Date / Time No Known Allergies Allergy Verified 10/01/22 07:53 Home Medications Medication Instructions Recorded Confirmed Type cholecalciferol (vitamin D3) 1,250 1,250 mcg PO WEEKLY 11/27/21 09/23/22 History mcg (50,000 unit) tablet (Dialyvite Vitamin D3 Max) fluoxetine 20 mg capsule 20 mg PO DAILY 08/12/22 09/23/22 History tramadol 50 mg tablet 50 mg PO PRN 08/12/22 09/23/22 History acetaminophen 500 mg tablet 1,000 mg PO QID PRN Pain 09/23/22 09/23/22 History (Tylenol Extra Strength) sodium,potassium,mag sulfates 17.5 See Rx Instructions PO .COMPLEX 09/23/22 Rx gram-3.13 gram-1.6 gram oral soln #354 mL (Suprep Bowel Prep Kit) Patient hx anesthesia problems: none Family hx anesthesia problems: none Results Review: All pre-operative results and documents have been reviewed as part of the pre-operative evaluation. [facility] Past Medical History Medical History Anxiety Anxiety Benign neoplasm of adenoid tissue Cholecystectomy planned Fibromyalgia GERD (gastroesophageal reflux disease) Headache Headache Nasopharyngeal mass Obesity Surgical History Surgical History History of cholecystectomy Hx of appendectomy Social History Social History (Updated 08/12/22 @ 09:44 by ALICE Jackson) Smoking packs per day: 0.5 Smoking cigarettes per day: 10.0 Years smoked: 15 Smoking pack-years: 7.50 Smoking status: Former smoker Tobacco type: cigarettes Smoking end date: 07/07/13 Additional smoking assessment comments: 1/2 ppd x 12 years cigarettes Alcohol intake: never Substance use: current Substance use type: marijuana Other substance usage details: 2x a week for insomnia smoking Lack of Transportation: No Lack of Food: Never True Current Housing: I Have Housing Concerned About Future Housing: No Difficulty Paying Gas/Electric Bills: No Difficulty Paying for Meds: No Currently Unemployed: No Education: High School Diploma/GED Difficulty w/ Childcare or Family Care: No Living arrangements: with family Gender identity (if verbalized by the patient): Female Sexual Orientation (if Verbalized by the Patient): Straight or Heterosexual Spiritual care concerns: No Anes - Eval Final PreProcedure Day of Procedure 09/30/22 15:14 Patient weight: normal Heart: regular rate and rhythm Lungs: clear to auscultation and normal air movement Airway: Mallampati scale class II Neurological: alert and oriented Last oral intake: >/= 8 hours ASA classification: II Emergent: no Anesthetic plan: proceed Anesthesia type and monitoring: general ETT Results Review: All pre-operative results and documents have been reviewed as part of the pre-operative evaluation. Informed Consent: The patient's anesthetic plan and its attendant risks and benefits were discussed with the patient/family/POA. Questions were solicited and answers provided to the satisfaction of the patient/family/POA.
--- NOTE | 2022-09-30 18:10 | PM.IMHP ---
H&P: HPI History of Present Illness Date/Time: 09/30/22 18:10 Chief Complaint: recurrent tonsillitis recurrent adenoiditis adenoid regrowth adenoid hypertrophy tonsillar hypertrophy Narrative: planned surgical procedure Review of Systems Review of Systems: All systems reviewed & are unremarkable except as noted in HPI and below PMFSH Past Medical History Medical History Anxiety Anxiety Benign neoplasm of adenoid tissue Cholecystectomy planned Fibromyalgia GERD (gastroesophageal reflux disease) Headache Headache Nasopharyngeal mass Obesity Surgical History Surgical History History of cholecystectomy Hx of appendectomy Social History Social History (Updated 08/12/22 @ 09:44 by ALICE Jackson) Smoking packs per day: 0.5 Smoking cigarettes per day: 10.0 Years smoked: 15 Smoking pack-years: 7.50 Smoking status: Former smoker Tobacco type: cigarettes Smoking end date: 07/07/13 Additional smoking assessment comments: 1/2 ppd x 12 years cigarettes Alcohol intake: never Substance use: current Substance use type: marijuana Other substance usage details: 2x a week for insomnia smoking Lack of Transportation: No Lack of Food: Never True Current Housing: I Have Housing Concerned About Future Housing: No Difficulty Paying Gas/Electric Bills: No Difficulty Paying for Meds: No Currently Unemployed: No Education: High School Diploma/GED Difficulty w/ Childcare or Family Care: No Living arrangements: with family Gender identity (if verbalized by the patient): Female Sexual Orientation (if Verbalized by the Patient): Straight or Heterosexual Spiritual care concerns: No Meds Home Medications and Allergies Home Medications Medication Instructions Recorded Confirmed Type cholecalciferol (vitamin D3) 1,250 1,250 mcg PO WEEKLY 11/27/21 09/23/22 History mcg (50,000 unit) tablet (Dialyvite Vitamin D3 Max) fluoxetine 20 mg capsule 20 mg PO DAILY 08/12/22 09/23/22 History tramadol 50 mg tablet 50 mg PO PRN 08/12/22 09/23/22 History acetaminophen 500 mg tablet 1,000 mg PO QID PRN Pain 09/23/22 09/23/22 History (Tylenol Extra Strength) sodium,potassium,mag sulfates 17.5 See Rx Instructions PO .COMPLEX 09/23/22 Rx gram-3.13 gram-1.6 gram oral soln #354 mL (Suprep Bowel Prep Kit) Allergies Allergy/AdvReac Type Severity Reaction Status Date / Time No Known Allergies Allergy Verified 09/23/22 09:16 Exam Narrative: large tonsils large adenoids Assessment and Plan Assessment and plan (1) Chronic tonsillitis: Code(s): J35.01 - Chronic tonsillitis Status: Acute Assessment and Plan: Plan operating room revision adenoidectomy tonsillectomy risks discussed including bleeding infection damage to surrounding structures postoperative bleeding 3-5% need for time off work failure to resolve symptoms would discuss has had this probably a 50-80% chance of helping. damage to any structure above the clavicles damage to any structure in the maintenance and or induction of anesthesia. (2) Recurrent tonsillitis: Code(s): J03.91 - Acute recurrent tonsillitis, unspecified Status: Acute (3) Tonsil asymmetry: Code(s): J35.8 - Other chronic diseases of tonsils and adenoids Status: Acute (4) Adenoid hypertrophy: Code(s): J35.2 - Hypertrophy of adenoids Status: Acute (5) Adenoiditis: Code(s): J35.02 - Chronic adenoiditis Status: Acute
[2022-10-01] VITALS (10 sets, daily range): BP systolic 105–123; BP diastolic 63–79; PULSE 78–116; RESP 14–22; TEMP 36.1–36.8; O2SAT 97–100
--- NOTE | 2022-10-01 07:21 | WPDHPUPDATE1 ---
History and Physical Update Update Date/Time: 10/01/22 07:21 History and Physical has been reviewed, including an updated exam of the patient. There are NO changes in the patient's condition. Risks, benefits, and alternatives have been discussed and questions answered. Patient agrees to proceed with procedure.
[2022-10-01] MEDS: ACETAMINOPHEN 500 MG TABLET 1000 MG PO (07:50)
[2022-10-01] MEDS: LACTATED RINGERS 1,000 ML 30 ML IV CONT ×2 (07:52→09:09)
--- NOTE | 2022-10-01 09:25 | W.PM.PROC2 ---
Procedure Note - Detailed Date of Procedure 10/01/22 Pre-op Diagnosis Hypertrophic Tonsils and Adenoids Chronic tonsillitis recurrent tonsillitis chronic adenoiditis Post-op Diagnosis Same Procedure Performed tonsillectomy adenoidectomy Surgeon Ellis De La Cruz MD Anesthesia General Indications see above Findings chronic appearing tonsils 3 areas of adenoids with purulence Description of Procedure patient identified consent verified. Patient brought operating. Time-out performed. General anesthesia induced endotracheal tube secured airway. Patient prepped draped position procedure confirm 2nd time-out performed. Tonsils were bilateral. Removed McIvor mouth gag was inserted they were removed the extracapsular plane using Bovie electrocautery at a setting of 10. Any bleeding was controlled Bovie suction electrocautery setting of 12. In between tonsils McIvor mouth gag lowered to allow blood flow to return to tongue. After tonsillectomy after mouth gag lowered for 30 seconds reopened to reveal no further bleeding. Red rubber catheters inserted transnasally opened to reveal 3 areas of purulent adenoid pad these were cauterized using Bovie suction electrocautery at setting 30. No bleeding. Red rubber catheters removed. The tonsillar fossa again examined no bleeding McIvor mouth gag removed care the patient given Anesthesiology blood loss about 1 cc. I performed all dictated portions of the procedure no complications patient tolerated the procedure well. Patient taken to PACU. Right tonsil is larger than left they were sent separately. Estimated Blood Loss 1 Drains No Packing No Pathology Yes Complications No immediate complications Condition Stable Disposition PACU [facility] Billing Surgery - Charge Forward: Surgery Billing
[2022-10-01] MEDS: fentaNYL CITRATE INJ (*CRX) 100 MCG/2 ML VIAL 25 MCG IV PUSH ×5 (09:43→10:51)
[2022-10-01] MEDS: oxyCODONE HCL (*CRX) 5 MG TAB IR PO (10:22)
== END 2022-10-01 11:37 | disposition home or self-care (01) ==
PROVIDERS: PCP Family Medicine; Visit Provider Otolaryngology
PROC: (CPT 42821; principal; 2022-10-01 08:30)
DX: J35.03 Chronic tonsillitis and adenoiditis (principal); F41.9 Anxiety disorder, unspecified; M79.7 Fibromyalgia; Z87.891 Personal history of nicotine dependence; F12.90 Cannabis use, unspecified, uncomplicated
CPT/HCPCS: 42821; 88300; 88304; A9270; J0330; J1100; J2250; J2405; J2704; J3010; J7120

== ENCOUNTER 2022-11-01 01:26 | Day surgery (SDC) | payer BC, SELFPAY ==
[2022-10-24 09:36] VITALS: BMI 25.0
--- NOTE | 2022-10-31 09:37 | WPDANESEPPF ---
Anes - Initial Pre Proc Eval Procedure: Operation Date: 11/01/22 08:45 Proposed Procedures p Colonoscopy - Cory Malhotra MD Date/Time: 10/31/22 09:37 Surgeon: Cory Malhotra MD Pre Op Diagnosis: Hemorrhage of anus/rectum,Abnormal weightloss Patient Data Age: 37 Gender: F Height: 1.65 m Weight: 68.3 kg Allergies Allergy/AdvReac Type Severity Reaction Status Date / Time No Known Allergies Allergy Verified 10/24/22 09:36 Home Medications Medication Instructions Recorded Confirmed Type cholecalciferol (vitamin D3) 1,250 1,250 mcg PO WEEKLY 11/27/21 10/24/22 History mcg (50,000 unit) tablet (Dialyvite Vitamin D3 Max) fluoxetine 20 mg capsule 20 mg PO DAILY 08/12/22 10/24/22 History tramadol 50 mg tablet 50 mg PO PRN PRN Pain 08/12/22 10/24/22 History acetaminophen 500 mg tablet 1,000 mg PO QID PRN Pain 09/23/22 10/24/22 History (Tylenol Extra Strength) sodium,potassium,mag sulfates 17.5 See Rx Instructions PO .COMPLEX 09/23/22 Rx gram-3.13 gram-1.6 gram oral soln #354 mL (Suprep Bowel Prep Kit) diphenhydramine HCl 25 mg tablet 25 mg PO DAILY 10/24/22 10/24/22 History Patient hx anesthesia problems: none Family hx anesthesia problems: none Results Review: All pre-operative results and documents have been reviewed as part of the pre-operative evaluation. [facility] Past Medical History Medical History (Updated 10/31/22 @ 09:38 by Yomi Draper DO) Anxiety Anxiety Benign neoplasm of adenoid tissue Cholecystectomy planned Fibromyalgia GERD (gastroesophageal reflux disease) Headache Headache Hyperlipidemia Nasopharyngeal mass Obesity PONV (postoperative nausea and vomiting) Surgical History Surgical History (Updated 10/31/22 @ 09:38 by Yomi Draper DO) History of cholecystectomy History of tonsillectomy History of tubal ligation Hx of appendectomy Social History Social History (Updated 08/12/22 @ 09:44 by Lakesha Oleary [facility]) Smoking packs per day: 0.5 Smoking cigarettes per day: 10.0 Years smoked: 15 Smoking pack-years: 7.50 Smoking status: Former smoker Tobacco type: cigarettes Smoking end date: 07/07/13 Additional smoking assessment comments: 1/2 ppd x 12 years cigarettes Alcohol intake: never Substance use: current Substance use type: marijuana Other substance usage details: 2x a week for insomnia smoking Last use: evenings Lack of Transportation: No Lack of Food: Never True Current Housing: I Have Housing Concerned About Future Housing: No Difficulty Paying Gas/Electric Bills: No Difficulty Paying for Meds: No Currently Unemployed: No Education: High School Diploma/GED Difficulty w/ Childcare or Family Care: No Living arrangements: with family Gender identity (if verbalized by the patient): Female Sexual Orientation (if Verbalized by the Patient): Straight or Heterosexual Spiritual care concerns: No Anes - Eval Final PreProcedure Day of Procedure 10/31/22 09:37 Patient weight: overweight Heart: regular rate and rhythm Lungs: clear to auscultation Airway: Mallampati scale class II Neurological: alert and oriented Last oral intake: >/= 8 hours ASA classification: III Emergent: no Anesthetic plan: proceed Anesthesia type and monitoring: general GIVS and standard monitoring Results Review: All pre-operative results and documents have been reviewed as part of the pre-operative evaluation. Informed Consent: The patient's anesthetic plan and its attendant risks and benefits were discussed with the patient/family/POA. Questions were solicited and answers provided to the satisfaction of the patient/family/POA.
[2022-11-01 07:14] VITALS: BP 97/66; PULSE 99; RESP 18; TEMP 36.2; O2SAT 99; BMI 25.6
--- NOTE | 2022-11-01 07:24 | SUR.PREOP ---
Pt. states she had a tubal ligation. No need for urine .
[2022-11-01] MEDS: LACTATED RINGERS 1,000 ML 150 ML IV CONT (07:37)
--- NOTE | 2022-11-01 07:52 | PM.HPGS ---
History of Present Illness History of Present Illness Consent: Risks, benefits, and alternatives have been discussed and questions answered. Patient agrees to proceed with procedure. Chief complaint: Hemorrhage of anus/rectum, weight loss Narrative: Keren Atwood is a 37 year old female Presents for colonoscopy. Patient reports intermittent bright red blood per rectum. She denies any associated pain. This occurred predominantly between May of 2022 in July of 2022. Patient reports her bowel habits are normal. She states that over the last several years she has avoided gluten and feels better. During this interval she has lost some weight. Since the began the years lost about 30lb. She denies any intentional weight loss. She has no other changes to account for this. Desires evaluation with colonoscopy. Her family history is noncontributory. Review of Systems Review of Systems: Review of systems noncontributory. [facility] Past Medical History Medical History (Updated 11/01/22 @ 07:54 by Cory Malhotra MD) Anxiety Anxiety Benign neoplasm of adenoid tissue Cholecystectomy planned Fibromyalgia GERD (gastroesophageal reflux disease) Headache Headache Hyperlipidemia Nasopharyngeal mass Obesity PONV (postoperative nausea and vomiting) Surgical History Surgical History (Updated 10/31/22 @ 09:38 by Yomi Draper, DO) History of cholecystectomy History of tonsillectomy History of tubal ligation Hx of appendectomy Social History Social History (Updated 08/12/22 @ 09:44 by Lakesha Oleary [facility]) Smoking packs per day: 0.5 Smoking cigarettes per day: 10.0 Years smoked: 15 Smoking pack-years: 7.50 Smoking status: Former smoker Tobacco type: cigarettes Smoking end date: 07/07/13 Additional smoking assessment comments: 1/2 ppd x 12 years cigarettes Alcohol intake: never Substance use: current Substance use type: marijuana Other substance usage details: 2x a week for insomnia smoking Last use: evenings Lack of Transportation: No Lack of Food: Never True Current Housing: I Have Housing Concerned About Future Housing: No Difficulty Paying Gas/Electric Bills: No Difficulty Paying for Meds: No Currently Unemployed: No Education: High School Diploma/GED Difficulty w/ Childcare or Family Care: No Living arrangements: with family Gender identity (if verbalized by the patient): Female Sexual Orientation (if Verbalized by the Patient): Straight or Heterosexual Spiritual care concerns: No Meds Home Medications and Allergies Home Medications Medication Instructions Recorded Confirmed Type cholecalciferol (vitamin D3) 1,250 1,250 mcg PO WEEKLY 11/27/21 10/24/22 History mcg (50,000 unit) tablet (Dialyvite Vitamin D3 Max) fluoxetine 20 mg capsule 20 mg PO DAILY 08/12/22 10/24/22 History tramadol 50 mg tablet 50 mg PO PRN PRN Pain 08/12/22 10/24/22 History acetaminophen 500 mg tablet 1,000 mg PO QID PRN Pain 09/23/22 10/24/22 History (Tylenol Extra Strength) sodium,potassium,mag sulfates 17.5 See Rx Instructions PO .COMPLEX 09/23/22 Rx gram-3.13 gram-1.6 gram oral soln #354 mL (Suprep Bowel Prep Kit) diphenhydramine HCl 25 mg tablet 25 mg PO DAILY 10/24/22 10/24/22 History Allergies Allergy/AdvReac Type Severity Reaction Status Date / Time No Known Allergies Allergy Verified 10/24/22 09:36 Vital Signs Vital Signs - 24 hr 11/01/22 07:14 Temperature 97.2 F L Pulse Rate 99 Respiratory Rate 18 Blood Pressure 97/66 L Pulse Oximetry 99 Oxygen Delivery Room Air Exam Narrative: Physical exam reveals patient to be alert. Vital signs stable. HEENT exam is unremarkable. Patient is anicteric. Lungs are clear to auscultation and percussion. Heart is without murmur or extra sounds. Abdomen bowel sounds are present soft nontender with no organomegaly. Digital external rectal exam normal. Assessment an
[2022-11-01 09:00] VITALS: BP 104/68; PULSE 72; RESP 22; O2SAT 100
[2022-11-01 09:10] VITALS: BP 103/65; PULSE 74; RESP 14; O2SAT 100
[2022-11-01 09:19] VITALS: BP 113/79; PULSE 76; RESP 18; O2SAT 100
== END 2022-11-01 09:25 | disposition home or self-care (01) ==
PROVIDERS: PCP Family Medicine; Visit Provider Internal Medicine Gastroenterology
PROC: 0DJD8ZZ Inspection of Lower Intestinal Tract, Via Natural or Artificial Opening Endoscopic (ICD-10-PCS; CPT 45378; principal; 2022-11-01 08:45)
DX: K62.5 Hemorrhage of anus and rectum (principal); K64.8 Other hemorrhoids; R63.4 Abnormal weight loss; E78.5 Hyperlipidemia, unspecified; F41.9 Anxiety disorder, unspecified; M79.7 Fibromyalgia; Z87.891 Personal history of nicotine dependence; F12.90 Cannabis use, unspecified, uncomplicated
CPT/HCPCS: 45378; J2001; J2704; J7120

== ENCOUNTER 2023-05-05 08:10 | Emergency (ER) | payer BC, SELFPAY ==
[2023-05-05] VITALS (16 sets, daily range): BP systolic 115–119; BP diastolic 73–92; PULSE 66–88; RESP 12–22; TEMP 36.6; O2SAT 92–100
--- NOTE | ~2023-05-05 | XR_ITS ---
EXAMINATION: XR chest 2V DATE: 05/05/2023 08:43 INDICATION: Midline chest pain TECHNIQUE: PA and lateral views of the chest were obtained. COMPARISON: Chest radiograph dated 09/21/2021 FINDINGS: The lungs remain clear with no focal airspace opacities, pulmonary edema, pleural effusion or pneumot horax. The cardiomediastinal silhouette is normal. Cholecystectomy clips in right upper quadrant. Mil d S-shaped curvature of the thoracic and lumbar spine. IMPRESSION: 1. No acute cardiopulmonary disease. Reviewed, dictated and finalized at location A.
--- NOTE | 2023-05-05 08:11 | ECG_ITS ---
Measurements Intervals [place] Rate: 74 P: 18 AR: 140 QRS: 33 QRSD: 77 T: -32 QT: 352 QTc: 391 Interpretive Statements SINUS RHYTHM WITH MARKED SINUS ARRHYTHMIA MODERATE T-WAVE ABNORMALITY, CONSIDER ANTERIOR ISCHEMIA [-0.1+ mV T WAVE IN V3/V4] ABNORMAL ECG NO PREVIOUS ECG AVAILABLE FOR COMPARISON Electronically Signed On 05-05-2023 8:52:14 CDT by Jerome Corley M.D.
[2023-05-05] MEDS: ASPIRIN 81 MG CHEWABLE TABLET 324 MG PO (08:23)
[2023-05-05 08:39] LABS: Basophils Absolute Auto 0.1 K/mm3 (0.0-0.1); Basophils Percent Auto 0.7 % (0.2-1.2); Eosinophils Absolute Auto 0.1 K/mm3 (0-0.3); Eosinophils Percent Auto 1.6 % (0-4.4); Hematocrit 40.5 % (37.0-47.0); Hemoglobin 13.2 g/dL (12.0-15.0); Immature Granulocyte Absolute 0.02 K/mm3 (0.00-0.031); Immature Granulocyte Percent A 0.3 % (0-0.5); Lymphocytes Percent Auto 22.5 % (18.3-44.2); Mean Corpuscular HGB Conc 32.6 g/dl (32-36); Mean Corpuscular Hemoglobin 29.9 pg (26-34); Mean Corpuscular Volume 91.6 fl (80-100); Mean Platelet Volume 9.6 fl (7.4-10.4); Monocytes Absolute Auto 0.4 K/mm3 (0.1-0.6); Monocytes Percent Auto 5.2 % (2.6-8.5); Neutrophils Absolute Auto 4.7 K/mm3 (1.3-6.7); Neutrophils Percent Auto 69.7 % (45.5-73.1); Platelet Count Result 312 k/mm3 (150-375); Red Blood Count 4.42 M/mm3 (4.2-5.4); Red Cell Distribution Width 12.6 % (11.5-14.5); White Blood Count 6.7 K/mm3 (4.5-10.0)
--- NOTE | 2023-05-05 08:40 | PC.NURSE ---
Pt to XRAY via w/c at this time.
[2023-05-05 08:45] LABS: INR 0.9; Prothrombin Time 12.9 Seconds (11.1-14.7)
[2023-05-05 08:46] LABS: Partial Thromboplastin Time 28.9 SECONDS (22.3-36.8)
[2023-05-05] MEDS: BELLADONNA ALK/PHENOB ELIX 10 ML, MAG HYDROX/ALUMINUM HYD/SIMETH 30 ML, LIDOCAINE HCL 2... PO (08:46)
[2023-05-05 09:05] LABS: Alanine Aminotransferase 15 U/L (6-35); Albumin Level 4.6 g/dL (3.5-5.1); Alkaline Phosphatase 45 U/L (38-126); Anion Gap 4 mmol/L (8-16); Aspartate Amino Transferase 25 U/L (14-36); Bilirubin,Total 0.6 mg/dL (0.2-1.3); Blood Urea Nitrogen 12 mg/dL (7-17); Calcium 9.5 mg/dL (8.4-10.2); Carbon Dioxide 24 mmol/L (22-30); Chloride 109 mmol/L (98-107); D Dimer 0.28 ug/mL (<0.48); Estimated CRCL calculation 97 ml/min; Estimated Glomerular Filt Rate > 60; Glucose 96 mg/dL (65-110); Lipase 63 U/L (23-300); Sodium 137 mmol/L (137-145)
--- NOTE | 2023-05-05 09:10 | ED.CHESTPAIN ---
HPI - Chest Pain General Chief Complaint: Chest Pain Stated Complaint: CP Time Seen by Provider: 05/05/23 08:19 History of Present Illness HPI narrative: This is a 37-year-old female, with history of anxiety, cholecystitis status postcholecystectomy, who presents emergency department complaining of substernal chest pain for the past day. The patient states her pain is described as sharp, substernal with some radiation to the left side of the chest but no other radiation. She denies any known aggravating or alleviating factors. Related Data Home Medications Medication Instructions Recorded Confirmed cholecalciferol (vitamin D3) 1,250 1,250 mcg PO WEEKLY 11/27/21 10/24/22 mcg (50,000 unit) tablet (Dialyvite Vitamin D3 Max) fluoxetine 20 mg capsule 20 mg PO DAILY 08/12/22 10/24/22 tramadol 50 mg tablet 50 mg PO PRN PRN Pain 08/12/22 10/24/22 acetaminophen 500 mg tablet 1,000 mg PO QID PRN Pain 09/23/22 10/24/22 (Tylenol Extra Strength) diphenhydramine HCl 25 mg tablet 25 mg PO DAILY 10/24/22 10/24/22 Allergies Allergy/AdvReac Type Severity Reaction Status Date / Time No Known Allergies Allergy Verified 05/05/23 08:20 Review of Systems Review of Systems: CONSTITUTIONAL: Denies fever, chills, or sweats. CARDIOVASCULAR: Chest pain denies palpitations, or edema. RESPIRATORY: Denies cough or dyspnea. GASTROINTESTINAL: Denies abdominal pain, nausea, vomiting, or diarrhea. GENITOURINARY: Denies dysuria or hematuria. SKIN: Denies rash or itching. MUSCULOSKELETAL: Denies back pain, joint pain, or myalgia. NEUROLOGIC: Denies headache, numbness, dizziness, or weakness. PSYCHIATRIC: Denies anxiety or depression. [facility] Past Medical History Medical History Anxiety Anxiety Benign neoplasm of adenoid tissue Cholecystectomy planned Fibromyalgia GERD (gastroesophageal reflux disease) Headache Headache Hyperlipidemia Nasopharyngeal mass Obesity PONV (postoperative nausea and vomiting) Surgical History Surgical History History of cholecystectomy History of tonsillectomy History of tubal ligation Hx of appendectomy Social History Social History Smoking packs per day: 0.5 Smoking cigarettes per day: 10.0 Years smoked: 15 Smoking pack-years: 7.50 Smoking status: Former smoker Tobacco type: cigarettes Smoking end date: 07/07/13 Additional smoking assessment comments: 1/2 ppd x 12 years cigarettes Alcohol intake: never Substance use: current Substance use type: marijuana Other substance usage details: 2x a week for insomnia smoking Last use: evenings Lack of Transportation: No Lack of Food: Never True Current Housing: I Have Housing Concerned About Future Housing: No Difficulty Paying Gas/Electric Bills: No Difficulty Paying for Meds: No Currently Unemployed: No Education: High School Diploma/GED Difficulty w/ Childcare or Family Care: No Living arrangements: with family Gender identity (if verbalized by the patient): Female Sexual Orientation (if Verbalized by the Patient): Straight or Heterosexual Spiritual care concerns: No Exam Narrative: GENERAL: Well-developed, well-nourished, and in no acute distress. HEAD: Normocephalic, atraumatic. EYES: PERRLA and EOMI. ENT: Nares clear, no rhinorrhea or epistaxis. Mucous membranes moist. Oropharynx without tonsillar hypertrophy exudate or other lesions. CHEST: Clear to auscultation. No respiratory distress. No wheezes rales or rhonchi HEART: Regular rate and rhythm. No murmur heard. Normal peripheral pulses. ABDOMEN: Soft, nontender, nondistended, normal active bowel sounds. EXTREMITIES: Normal range of motion. No edema. SKIN: Warm, dry, no rash. NEURO: Alert and oriented x3. Moving all 4 limbs purposefully. PSYCH: Normal mood and aff
[2023-05-05 09:17] LABS: Troponin I < 0.012 ng/mL (0.000-0.034)
[2023-05-05] MEDS: FAMOTIDINE 20 MG/2 ML VIAL IV PUSH (10:18)
[2023-05-05] MEDS: ACETAMINOPHEN 500 MG TABLET 1000 MG PO (10:18)
== END 2023-05-05 10:49 | disposition home or self-care (01) ==
PROVIDERS: Emergency Provider Preventive Medicine Aerospace Medicine; PCP Family Medicine
DX: R07.89 Other chest pain (principal); E78.5 Hyperlipidemia, unspecified; E66.9 Obesity, unspecified; M79.7 Fibromyalgia; K21.9 Gastro-esophageal reflux disease without esophagitis; Z68.31 Body mass index [BMI] 31.0-31.9, adult; F41.9 Anxiety disorder, unspecified; Z87.891 Personal history of nicotine dependence; Z90.49 Acquired absence of other specified parts of digestive tract; R94.31 Abnormal electrocardiogram [ECG] [EKG]
CPT/HCPCS: 36415; 71046; 80053; 83690; 84484; 85025; 85380; 85610; 85730; 93005; 96374; 99284; A9270

== ENCOUNTER 2023-11-30 07:35 | Emergency (ER) | payer OTHER, SELFPAY ==
[2023-11-30] VITALS (11 sets, daily range): BP systolic 103–137; BP diastolic 75–83; PULSE 74–99; RESP 14–24; O2SAT 95–100
--- NOTE | ~2023-11-30 | US_ITS ---
EXAMINATION: US pelvic complete w TV DATE: 11/30/2023 09:01 INDICATION: Right lower quadrant abdominal pain. TECHNIQUE: Multiple transabdominal and transvaginal sonographic images of the pelvis were obtained. COMPARISON: CT abdomen and pelvis 06/12/2022 FINDINGS: TRANSABDOMINAL ULTRASOUND: The uterus measures 7.8 x 3.2 x 4.6 cm. There is no free fluid in the pelvis. TRANSVAGINAL ULTRASOUND: The endometrial complex measures 4 mm in thickness. There is an intrauterine device in expected posit ion. The right ovary measures 2.6 x 1.5 x 1.6 cm. The left ovary measures 2.7 x 1.6 x 2.1 cm. There i s normal vascular flow in the ovaries. IMPRESSION: 1. Normal pelvis. 2. Intrauterine device in expected position. Reviewed, dictated and finalized at location E.
--- NOTE | 2023-11-30 08:14 | PC.NURSE ---
erp at bedside for vaginal exam.
[2023-11-30 08:16] LABS: Appearance Urine Clear (Clear); Bacteria Urine None Seen /hpf; Bilirubin Urine Negative (Negative); Blood Urine 1+ (Negative); Color Urine Yellow (Yellow); Glucose Urine UA Negative (Negative); Ketones Urine Negative (Negative); Leukocyte Esterase Ur Negative LEU/UL (Negative); Nitrate Urine Negative (Negative); Non Pathogenic Casts 0-2; Protein Urine Negative (Negative); Specific Grav Ur 1.016 (1.001-1.035); Squamous Epithelial Cell Urine None Seen /hpf (Few); Urobilinogen Urine 0.2 mg/dL (<2.0); WBC Urine 0-5 /hpf (0-3); pH Urine 6.5 (5.0-9.0)
[2023-11-30 08:23] LABS: Add Urine Microscopic? YES
--- NOTE | 2023-11-30 08:23 | PC.NURSE ---
ultrasound contacted to be notified of order placement.
--- NOTE | 2023-11-30 08:34 | PC.NURSE ---
Pt taken via wheelchair to US at this time.
--- NOTE | 2023-11-30 09:02 | ED.FEMALEGU ---
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 Patient states that when she went to go wipe after pain, she noticed some bulging around her vaginal area. Patient is only sexually active with 1 partner her and she has not had any sexual intercourse with him for the past year. Patient admits that she recently got off of 2 courses of antibiotics for urinary tract infection. She is currently denying any dysuria, but does admit to some burning in her vaginal area. Denies any discharge or spotting. Patient has an IUD in place and does not normally have any bleeding with her menses. She denies any fevers or chills at home and does any additional symptoms or concerns at this time. Related Data Home Medications Medication Instructions Recorded Confirmed cholecalciferol (vitamin D3) 1,250 1,250 mcg PO WEEKLY 11/27/21 10/24/22 mcg (50,000 unit) tablet (Dialyvite Vitamin D3 Max) fluoxetine 20 mg capsule 20 mg PO DAILY 08/12/22 10/24/22 tramadol 50 mg tablet 50 mg PO PRN PRN Pain 08/12/22 10/24/22 acetaminophen 500 mg tablet 1,000 mg PO QID PRN Pain 09/23/22 10/24/22 (Tylenol Extra Strength) diphenhydramine HCl 25 mg tablet 25 mg PO DAILY 10/24/22 10/24/22 Allergies Allergy/AdvReac Type Severity Reaction Status Date / Time No Known Allergies Allergy Verified 05/05/23 08:20 Review of Systems Review of Systems: All systems are reviewed and are negative unless stated otherwise in the HPI. [facility] Past Medical History Medical History Anxiety Anxiety Benign neoplasm of adenoid tissue Cholecystectomy planned Fibromyalgia GERD (gastroesophageal reflux disease) Headache Headache Hyperlipidemia Nasopharyngeal mass Obesity PONV (postoperative nausea and vomiting) Surgical History Surgical History History of cholecystectomy History of tonsillectomy History of tubal ligation Hx of appendectomy Social History Social History Smoking packs per day: 0.5 Smoking cigarettes per day: 10.0 Years smoked: 15 Smoking pack-years: 7.50 Smoking status: Former smoker Tobacco type: cigarettes Smoking end date: 07/07/13 Additional smoking assessment comments: 1/2 ppd x 12 years cigarettes Alcohol intake: never Substance use: current Substance use type: marijuana Other substance usage details: 2x a week for insomnia smoking Last use: evenings Lack of Transportation: No Lack of Food: Never True Current Housing: I Have Housing Concerned About Future Housing: No Difficulty Paying Gas/Electric Bills: No Difficulty Paying for Meds: No Currently Unemployed: No Education: High School Diploma/GED Difficulty w/ Childcare or Family Care: No Living arrangements: with family Gender identity (if verbalized by the patient): Female Sexual Orientation (if Verbalized by the Patient): Straight or Heterosexual Spiritual care concerns: No Exam Narrative: General: Alert, awake, afebrile, in no acute distress. HEENT: PERRL, no rhinorrhea, no post nasal drip, oropharynx clear. Cardiovascular: Regular rate and rhythm, no murmurs, rubs or gallops, no peripheral edema. Respiratory: Clear to auscultation bilaterally, no tachypnea, no wheezing, no rhonchi, no rubs, no respiratory distress. Abdomen: Soft, nontender, nondistended, no rebound, no guarding, no peritoneal signs. Pelvic: Exam performed with the presence of a female vmware consultant nurse which reveal normal external genitalia, mild white discharge noted in the vaginal canal, no cervical motion tenderness, mild tenderness over t
[2023-11-30] MEDS: FLUCONAZOLE 150 MG TABLET PO (09:24)
== END 2023-11-30 09:55 | disposition home or self-care (01) ==
PROVIDERS: Emergency Provider Emergency Medicine; PCP Family Medicine
DX: B37.31 Acute candidiasis of vulva and vagina (principal); F41.9 Anxiety disorder, unspecified; K21.9 Gastro-esophageal reflux disease without esophagitis; M79.7 Fibromyalgia; E78.5 Hyperlipidemia, unspecified
CPT/HCPCS: 76830; 76856; 81001; 81025; 99284; A9270

== ENCOUNTER 2024-12-12 07:24 | Emergency (ER) | payer OTHER, SELFPAY ==
[2024-12-12] VITALS (14 sets, daily range): BP systolic 112–116; BP diastolic 72–85; PULSE 64–97; RESP 12–20; TEMP 36.6; O2SAT 97–100
--- NOTE | ~2024-12-12 | CT_ITS ---
Clinical Indication: Pain with breathing CT Scan of the Chest with Contrast: Technique: Contiguous sections were acquired throughout the chest after intravenous administration of 100 cc of Omnipaque 350. Dose reduction technique was used on this scan by utilizing automated expos ure control and iterative reconstruction technique. The dose-length product (DLP) was 322.94 mGy-cm. Findings: There is no evidence of any significant mediastinal, hilar or axillary lymphadenopathy. There is no f illing defect in the pulmonary arterial tree to suggest pulmonary embolus. Aberrant right subclavian artery noted. There is no evidence of aortic dissection or aneurysm. There is no evidence of pleural or pericardial effusion. The lungs are clear. No pulmonary nodules or infiltrates are noted. Images through the upper abdomen reveal no abnormalities. Impression: No evidence of pulmonary embolus, aortic dissection, or aortic aneurysm. Clear lungs. Reviewed, dictated and finalized at [facility]. Impression: No evidence of pulmonary embolus, aortic dissection, or aortic aneurysm. Clear lungs.
--- NOTE | 2024-12-12 07:26 | ECG_ITS ---
Test Date: 2024-12-12 07:32:02 Measurements Intervals [place] Rate: 83 P: 22 [place]: 155 QRS: -1 QRSD: 72 T: -18 QT: 324 QTc: 382 Interpretive Statements SINUS RHYTHM MODERATE T-WAVE ABNORMALITY, CONSIDER ANTEROLATERAL ISCHEMIA BASELINE ARTIFACT- II, III, AVR, AVL, AVF ABNORMAL ECG No previous ECG available for comparison Electronically Signed On 12-12-2024 08:25:25 CDT by Matthew Farley D.O.
--- OUTSIDE RECORDS SUMMARY | 2024-12-12 07:26 | XMS_ITS | Continuity of Care Document ---
Author Organization [facility] Address [address] [place] [address] Phone Care Team Providers Care Group Teacher Name Role Phone Shady Slater Unavailable Unavailable Procedures Procedure Date Office/outpatient Visit, Est Eye Exam Established Pt Eye Exam, New Patient Advance Directives Directive Yes / No Effective Date File Name No Information Encounters Encounter Description Practice Location Reason(s) For Visit Diagnoses Date Provider Providers Copied on Encounter Office/outpat ient Visit, Est [facility], [address] [place] [address] [address], [place], [place], [id number], [place] tel:[phone] [facility] No Information [address], [place], [place], [facility], [place]. tel:[phone] [facility], [id number] [place] [address] [address], [place], [place], [id number], [place] tel:[phone] [address] [facility] No Information [address], [place], [place], [facility], [place]. tel:[phone] [facility], [address], [place], [place], [id number], [place] tel:[phone] [address] [facility] No Information [address] [facility] [address], [place], [address], [place]. tel:[phone] Referring Provider: Anthony Vergara [address] [facility] [address], [place], [address]. tel:[phone] Family History Family Member Type Diagnosis Age At Onset No Information Payers Payer name Insurance type Covered libertarian ID Authortomi garcia(s) Medicaid [facility] [id number] Social History Type Description Quantity Date Captured Comments Sex Female Smoking Status No Information Chief Complaint And Reason For Visit No Information Reason For Referral Reason For Referral No Information History Of Present Illness Encounter Date Complaint History Of Prese nt Illness No Information Functional Status Date Functional Assessmen t No Information Instructions Date Instruction Additional Infor mation No Information Assessments Type Assessment Date No Information Patient Care Teams Name Effective Dates (start - stop) Status Members No Information
--- OUTSIDE RECORDS SUMMARY | 2024-12-12 07:26 | XMS_ITS | Data Portability ---
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 Plan of Treatment Reminders Order Date Submit Date Provider Last Modified By Organization Details Last Modified Time Details Appointments None recorded. Lab urinalysis, dipstick [address] [place], [place] [id number], [address], [place], [address], 4 11:59:02 Referral None recorded. Procedures None recorded. Surgeries None recorded. Imaging US, pelvis 2023 [address], [address], [place], [address], 4 23:10:42 US, transvagina l 2023 [address], [address], [place], [address], 4 23:10:42 MAMMO, diagnostic, unilateral [address] [facility], [address], [place], [address], 2 14:29:13 US, breast, unilateral 2021 022 [facility], [address], [place], [address], 18:00:46 Medication Orders None recorded. Patient TargetsNo targets recorded. Patient InstructionsNo instructions recorded. Reason for Referral None Reported. Results Created Date Observation Date Name Description Value Unit Range Abnormal Flag Note LastModifiedBy Organization Detail LastModifiedTime 12/03/19 24 12/03/2023 CULTU RE: URINE result report SEE RESULT S BELOW Test: Cultu re: Urine Speci men Sourc e: Urine - Clean Catch Speci men Type: Urine Speci men Date: 2023 12:59 PM Resul t Date: 2023 7:46 AM Resul t Statu s: Final resul t Abnor mal: No Resul ting Lab: [facility] [address] [facility] [address] Tel: CULTU RE ----- ----- ----- --- Cultu re resul t (>=3 organ isms prese nt) indic ates possi ble conta minat ion. Repea t cultu re if sympt oms indic ate. Not Available [facility] (Lab) [address] [facility], [place], [address], 12/05/2023 08:51:35 12/03/19 24 12/03/2023 urina lysis , dipst ick Leukocytes trace Not Available [facility] [address], [place], [address], 12/03/2023 11:57:30 12/03/19 24 12/03/2023 urina lysis , dipst ick pH 6 Not Available [facility] [address], [place], [address], 12/03/2023 11:57:30 12/03/19 24 12/03/2023 urina lysis , dipst ick Blood +++ Not Available [facility] [address], [place], [address], 12/03/2023 11:57:30 12/03/19 24 12/03/2023 urina lysis , dipst ick Specific [place] 1.010 Not Available [facility] [address], [place], [address], 12/03/2023 11:57:30 03/13/20 22 03/12/2022 MAMMO , diagn ostic , bilat eral No observ ation record ed. [address], [place], [address], 04/11/2022 10:38:09 03/19/20 22 03/13/2022 US, mando t, unila teral No observ ation record ed. [address], [place], [address], 06/12/2022 08:14:46 03/16/20 24 03/16/2024 US, pelvi s No observ ation record ed. [email or web address] [facility] [address], [place], [address], 03/16/2024 18:26:47 03/16/20 24 03/16/2024 US, trans vagin al No observ ation record ed. [email or web address] [facility] [address], [place], [address], 03/16/2024 18:26:56 03/16/20 24 03/16/2024 US, pelvi s No observ ation record ed. [facility] [address], [place], [address], 04/01/2024 04:03:38 Result Notes None recorded. Procedures Surgical History Date Name Laterality Status Provider Name and Address Organization Details Recorded Time 022 IUD Insertion completed Renetta Jett, [facility]- [address], [place], [address], [place] - [facility] 12/18/2021 16:26:47 022 Date of Last Pap Smear completed [facility] 12/18/2021 15:00:12 Cholecystectomy completed [facility] 11/23/2021 14:15:03 Tubal Ligation completed [facility] 11/23/2021 14:15:03 Appendectomy completed [facility] 11/23/2021 14:15:03 Imaging Results None recorded. Procedure Notes None recorded. Medical Equipment None Reported. Allergies No known drug allergies Medications Name Sig Start Date Stop Date Status Note LastModified by Organization Details LastModified Time celecoxib 200 mg capsule Take by oral route for 8 days. 12/11 completed Not Available Not Available Not Available doxycycline hyclate 100 mg capsule 12/02 completed Not Available Not Available Not Available atorvastati n 20 mg tablet TAKE 1 TABLET BY MOUTH EVERY DAY 12/02 completed Not Available Not Available Not Available trazodone 50 mg tablet TAKE 1 TABLET BY MOUTH EVERY NIGHT AT BEDTIME 11/23 completed Not Available Not Available Not Available fluconazole 150 mg tablet 12/02 completed Not Available Not Available Not Available diclofenac ER 100 mg tablet,exte nded release 24 hr TAKE 1 TABLET BY MOUTH EVERY DAY FOR 30 DAYS *DO NOT TAKE WITH OTHER NSAIDS* 12/02 completed Not Available Not Available Not Available hydrocodone 5 mg-acetamin ophen 325 mg tablet TAKE 1 TABLET BY MOUTH EVERY 6 HOURS NEEDED FOR PAIN 12/02 completed Not Available Not Available Not Available sucralfate 1 gram tablet 11/23 completed Not Available Not Available Not Available famotidine 40 mg tablet TAKE 1 TABLET BY MOUTH EVERY DAY 12/02 completed Not Available Not Available Not Available prednisone 20 mg tablet TAKE 2 TABLETS BY MOUTH DAILY X5 DAYS 11/23 completed Not Available Not Available Not Available prednisone 5 mg tablet TAKE 2 TABS DAILY X4 DAYS, THEN1 TAB DAILY X3 DAYS. TAKE IN THE MORNING. *NO NAPROXEN WHILE ON THIS* 02/12 completed Not Available Not Available Not Available acetaminoph en 300 mg-codeine 30 mg tablet TAKE 1 TABLET BY MOUTH EVERY 12 HOURS NEEDED FOR PAIN 11/23 completed Not Available Not Available Not Available tramadol 50 mg tablet TAKE 1 TABLET BY MOUTH FOUR TIMES A DAY FOR PAIN 12/02 completed Not Available Not Available Not Available pantoprazol e 20 mg tablet,rod yed release TAKE 1 TABLET BY MOUTH TWICE DAILY WITH MEALS FOR 30 DAYS 11/23 completed Not Available Not Available Not Available lorazepam 0.5 mg tablet 02/12 completed Not Available Not Available Not Available cephalexin 500 mg capsule TAKE 1 CAPSULE BY MOUTH TWICE A DAY 12/02 completed Not Available Not Available Not Available pantoprazol e 40 mg tablet,rod yed release TAKE 1 TABLET BY MOUTH TWICE DAILY 11/23 completed Not Available Not Available Not Available lidocaine 5 % topical patch APPLY 1 PATCH BY TOPICAL ROUTE ONCE DAILY (MAY WEAR UP TO 12HOURS.) 2023 active Not Available Not Available Not Avai lable gabapentin 300 mg capsule TAKE 2 CAPSULES BY MOUTH 3 TIMES A DAY *DOSE INCREASE 12/02 completed Not Available Not Available Not Available hydroxyzine HCl 25 mg tablet TAKE 1 TABLET BY MOUTH THREE TIMES DAILY NEEDED 11/23 completed Not Available Not Available Not Available ergocalcife rol (vitamin D2) 1,250 mcg (50,000 unit) capsule TAKE 1 CAPSULE BY MOUTH WEEKLY FOR 12 WEEKS 12/02 completed Not Available Not Available Not Available scopolamine 1 mg over [address] 1 PATCH BEHIND YOUR EAR EVERY 72HOURS 12/02 completed Not Available Not Available Not Available ondansetron 4 mg disintegrat ing tablet LET 1 TABLET DISSOLVE BY MOUTH EVERY 12 HOURS OR AT THE ONSET OF NAUSEA. 12/02 completed Not Available Not Available Not Available fluoxetine 20 mg capsule TAKE 1 CAPSULE BY MOUTH EVERY DAY IN THE MORNING 12/02 completed Not Available Not Available Not Available naproxen 500 mg tablet TAKE 1 TABLET BY MOUTH TWICE A DAY 02/12 completed Not Available Not Available Not Available amoxicillin 875 mg-potassiu m clavulanate 125 mg tablet TAKE 1 TABLET BY MOUTH TWICE A DAY 02/12 completed Not Available Not Available Not Available oxycodone 5 mg tablet TAKE 1 TABLET BY MOUTH EVERY 12 HOURS NEEDED FOR PAIN 12/02 completed Not Available Not Available Not Available escitalopra m 10 mg tablet TAKE 1 TABLET BY MOUTH EVERY DAY 11/23 completed Not Available Not Available Not Available cyclobenzap rine 5 mg tablet TAKE 1 TABLET BY MOUTH THREE TIMES A DAY active Not Available Not Available No t Available ciprofloxac in 0.3 %-dexametha sone 0.1 % ear drops,suspe nsion PLACE 4 DROPS INTO AFFECTED EAR(S) TWICE A DAY FOR 7 DAYS 11/23 completed Not Available Not Available Not Available amlodipine 2.5 mg-atorvast atin 20 mg tablet 11/23 completed Not Available Not Available Not Available gabapentin 11/23 completed Not Available Not Available Not Available Comfort Pac-Cyclobe nzaprine 10 mg kit 11/23 completed Not Available Not Available Not Available Addyi 100 mg tablet Take 1 tablet every day by oral route for 30 days. 02/12 completed Not Available Not Available Not Available EC-Naproxen 500 mg tablet,rod yed release 11/23 completed Not Available Not Available Not Available Alive Calcium-Vit starkey D3 active Not Available Not Available Not Available Vitals Date Recorded Body height Body mass index (BMI) Body weight Systolic blood pressure Diastolic blood pressure Provider Name and Address Organization Details Last Updated DateTime 12/03/2023 160.02 cm 31.4 kg/m2 76467.85 g 116 mm[Hg] 79 mm[Hg] Cecilia Flynn [facility] 4 11:51:32 Date Recorded Body height Body mass index (BMI) Body weight Systolic blood pressure Diastolic blood pressure Provider Name and Address Organization Details Last Updated DateTime 12/17/2023 160.02 cm 31.6 kg/m2 85462.16 g 116 mm[Hg] 78 mm[Hg] Ashlyn Taylor [facility] 4 15:33:07 Date Recorded Systolic blood pressure Diastolic blood pressure Provider Name and Address Organization Details Last Updated DateTime 02/12/2022 122 mm[Hg] 78 mm[Hg] GISELA Jon- [address], [place], [address], [facility] 02/12/2022 12:17:20 Date Recorded Body height Body mass index (BMI) Body weight Provider Name and Address Organization Details Last Updated DateTime 02/12/2022 160.02 cm 31.5 kg/m2 02180.44 g Maral Dykes [facility] 02/12/2022 12:01:56 Date Recorded Body height Body mass index (BMI) Body weight Systolic blood pressure Diastolic blood pressure Provider Name and Address Organization Details Last Updated DateTime 03/09/2024 160.02 cm 32.3 kg/m2 45095.53 g 114 mm[Hg] 76 mm[Hg] Ashlyn Taylor [facility] 09:36:27 Social History Question Answer Notes LastModified by Organizat ion Details LastModified Time Tobacco Smoking Status Never Smoker Maral Donis null, [facility] 02/12/2022 12:02:08 Do You Have An Advance Directive? No Information n ot available 11/23/2021 Are You Blind Or Do You Have Difficulty Seeing? No Information n ot available 11/23/2021 What Is Your Level Of Caffeine Consumption? Moderate Information not available 11/23/2021 How Much Tobacco Do You Chew? None Information not available 11/23/2021 In The 14 Days Before Symptom Onset, Have You Had Close Contact With A Laboratory-confirm ed COVID-19 While That Case Was Ill? No Information n ot available 11/23/2021 In The 14 Days Before Symptom Onset, Have You Had Close Contact With A Person Who Is Under Investigation For COVID-19 While That Person Was Ill? No Information not available 11/23/2021 Have You Been To An Area Known To Be High Risk For COVID-19? No Information not available 11/23/2021 Are You Deaf Or Do You Have Serious Difficulty Hearing? No Information not available 11/23/2021 What Type Of Diet Are You Following? GLUTENFREE Information n ot available 11/23/2021 What Is The Highest Grade Or Level Of School You Have Completed Or The Highest Degree You Have Received? [id number] Information not available 11/23/2021 Are There Any Guns Present In Your Home? Yes Information not available 11/23/2021 Do You Use Protection During Sex? No Information not available 11/23/2021 Do You Use Your Seat Belt Or Car Seat Routinely? Yes Information not available 11/23/2021 Do You Have Smoke And Carbon Monoxide Detectors In Your Home? Yes Information not available 11/23/2021 How Much Tobacco Do You Smoke? No Information not available 11/23/2021 Do You Use Sunscreen Routinely? No Information not available 11/23/2021 Have You Used IV Drugs? No Information not available 02/12/2022 Do You Have Difficulty Walking Or Climbing Stairs? No Information not available 02/12/2022 Sex: Unknown Functional Status Question Answer Note LastModified by Organizat ion Details LastModified Time Do you use any illicit or recreational drugs? Yes Information not available 11/23/2021 What is your level of alcohol consumption? None Information not available 11/23/2021 Are you able to walk? YESWOREST Information not available 11/23/2021 Are you able to care for yourself? 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 No Information not available 02/12/2022 What is your exercise level? Moderate Information not available 11/23/2021 Mental Status Question Answer Note LastModified by Organization D etails LastModified Time Do you feel stressed (tense, restless, nervous, or anxious, or unable to sleep at night)? [id number] Information not available 11/23/2021 Family History Relationship Description Onset Age of this Age Resolved Age Notes LastModified by Organization Details LastModified Time Father No current problems or disability [email or web address] Not available 03/09 09:36:53 Mother No current problems or disability [email or web address] Not available 03/09 09:36:53 Medical History Condition Response Anxiety Disorder Y Acid Reflux (GERD) Y Fibromyalgia Y Neurologic/Epilepsy Y High Cholesterol Y Gynecological History Statement/Question Response Date of LMP On BCP's at Conception? Y N Was last menstrual period normal N STIs/STDs N HPV Vaccine N Current Control Method Tubal Ligat ion Age at First Child 21 Are cycles usually normal N Sexually Active? N Menses Monthly N Age of first menstrual cycle 12 Date of Last Pap Smear 11/23/2021 Sexual Problems? Y Desired Control Method IUD LMP Unknown N Obstetrics History GPAL:G 2 P 0 0 1 1 Type Value Induced 1 Living 1 Total 2 Past Encounters Encounter ID Performer Location Encounter Start Date Encounter Closed Date Diagnosis/Indication Diagnosis SNOMED-CT Code Diagnosis ICD10 Code Diagnosis Note [id number] Renetta Jett [facility] [address] [address] 11/23/2021 13:53:10 11/28/2021 16:25:33 Pain in pelvis 56039669 R10.2 Will update TVUS to ensure no other issues.Tri al of Celebrex instead of Naproxen for pain with periods. Consider trial of Mirena IUD: Discussed all control options and pt would like mirena IUD. I have discussed in detail all risks and benefits including risk of infection and perforatio n. She understand s she will need to contact office with next menses or may abstain, complete serum HCG day before placement, if neg can have IUD placed next day. Aware of need to verify with insurance device coverage. Literature given. All questions answered to patient satisfacti on. Has not been SA for months.Joe ling to place device with neg UTP.Will take Celebrex & ativanHave someone drive her to appt NOTE: Will also make WWE appointmen t Dyspareunia 16207792 N94 .10 F52.0 Trial of addyi Counseled on medication R/B's, Most common side effects, & use. All questions were answered to patient satisfacti on. RTO x 30 days for med checkWill update labs Consider referral to counselor that does single & couples counseling . [id number] Renetta Jett [facility] [address] [address] 12/11/2021 14:32:44 12/11/2021 15:52:51 Gynecologic examination 02983948 Z01.419 Take Calcium with Vitamin D 1200mg daily if not receiving in daily diet. It is strongly advised to have an annual flu shot and up can obtain at most pharmacies . If you have not had a TDap shot in the last 10 years you should obtain one as well. Discussed with patient & provided with informatio n regarding Gardisil vaccine to prevent the 4 strains for HPV that cause cervical cancer if under age 26. Encourage safe sexual practices, to use condoms and limit partners if not already in a monogamous relationsh ip. Do monthly self breast exams. Have mammogram yearly or every other year depending on family history. BRCA testing is now available for patients with strong genetic history of female cancer. If interested contact the office. Engage in daily exercise of low impact aerobic exercise 45-60 minutes 4-5 times weekly. Avoid tobacco and illicit drugs as well as using moderation with alcohol intake less than 1-2 8 oz beverages daily. This lifestyle behavior pattern will lead to less health conditions and longer life span. If BMI greater than 25 weight watchers or dietary consult advised. Patient received above instructio ns, and questions have been answered. If you have any questions please call or respond to this email. Patient was made aware of the patient portal and may obtain a paper copy of today's plan if desired. Pap/hpv sentSTD Screen UTDGenetic Screen discussedC olon Screen naDexa Screen [facility] V[facility] [id number] [facility] [address] [address] 12/18/2021 14:35:12 12/18/2021 16:44:19 Insertion of intrauterine contraceptive device 96734697 Z30.430 She has been counseled on all of the r/b/a of placement of an intrauteri ne device that include but are not limited to uterine perforatio n, injury to cervix, vagina, bladder, and bowel.Risk s of bleeding due to injury or increased irregular bleeding due to progestin effect of the device. Risks of infection would be increased within the first 21 days of placement with concommita nt cervicitis . She understand s that the device will need to be removed in this instance due to increased risk of Pelvic inflammato ry disease. Patient is aware she is at higher risk for STD and if contracted she could lose her fertility. Pt is aware that if occurs that she should contact office immediatel y to rule out ectopic which could be life threatenin g. IUD will also need to be removed and this could cause miscarriag e. Patient also informed that in the event her strings are absent or embedded at the time of removal she may need to have the IUD surgically removed. She was informed of the above and properly consented. IUD placed w/o complicati on. Patient should return to office after next period to check for string placement. Patient to expect irregular bleeding but should be seen in the ED if bleeding increases to soaking a pad an hour for at least 2 hours. She verbalized understand ing. RTO x 6wks IUD string check Chronic pe lvic pain of female 008283035 R10.2 INsurance not cover Celebrex.W ill trial Diclofenac for pain instead.Ma y couple with tylenol & sky rosenbaum for tonight after IUD insertion. Heating pad/hot shower/bat h also recommende d.Rest. [id number] [facility] [address],[facility] [place] [address] 02/12/2022 11:50:52 02/12/2022 12:25:01 Intrauterine device check [id number] Z30.431 Patient is here for 4-6wk IUD string check. She denies complicati ons, pain, or unpleasant side effects. Happy with this control method. Wishes to continue. Pain of breast 09144729 N64.4 N63.20 Exam warrants further evaluation of this issue.Will await report. Pain of left breast 1010 786456 N64.4 [id number] [facility] [address],[facility] [place] [address] 12/03/2023 11:38:20 12/03/2023 12:41:48 Urinary symptoms 806106683 R39.9 Urine culture sentNot for 1yr so declined std screen Low back pain 063981436 M54.50 Today press maintainer exam is wnlLower back seems to be the issue which is likely more musculoske letal in nature; hx of fibromyalg ia.Since neg flank pain/press maintainer exam is wnl; GI neg; and urine sx's not prominent. We agreed to have her go see her chiropract or and visit the massage therapist she see's for muscle work. US from [facility] is wnl & IUD seen is appropriat megan placed.Hea lth Hx was reviewed and updated as reported in chart. Time spent in visit is a total of 21 mins with at least 50% of visit consisting of counseling and review of plan of care. Menorrhagia 332390258 N9 2.0 Updated US from [facility] 11/29/23Wan ts to consider endometria l ablationBrenda grant MD consult (prefers female providers) [id number] SOFY CRUZ MD [facility] [address] [address] 12/17/2023 15:17:32 12/17/2023 16:13:33 Pain in pelvis 23633654 R10.2 - present for 3-4 years, worsening over last 2 years since IUD placement- amenorrhei c with IUD, however symptoms still occurring- discussed endometria l ablation is unlikely to treat non-bleedi ng symptoms given no improvemen t with amenorrhea on IUD- ddx: adenomyosi s vs endometrio sis- discussed expectant vs medical vs surgical management ; discussed only way to diagnose endometrio sis is by tissue sampling however could trial hormonal control for symptom relief- patient would like to try OCPs, samples given of Nextstelli s- rtc 3 months [id number] SOFY CRUZ MD [facility] [address] [address] 03/09/2024 09:28:43 03/09/2024 10:35:27 Pain in pelvis 81912349 R10.2 - present for 3-4 years, worsening over last 2 years since IUD placement- amenorrhei c with IUD, however symptoms still occurring- discussed endometria l ablation is unlikely to treat non-bleedi ng symptoms given no improvemen t with amenorrhea on IUD- ddx: adenomyosi s vs endometrio sis- no improvemen t in Nextstelli s, did have 10lb weight gain- will evaluate structural abnormalit ies with pelvic US- if no obvious anomalies, will send referral for pelvic pain specialist [id number] Chris Fernandes MD [facility] [address] [address] 03/16/2024 12:20:48 03/16/2024 13:28:09 Pain in pelvis 68842780 R10.2 Health Concerns Section Related Observation LastModified by Organization Detai ls LastModified Time None Recorded Concern Status LastModified by Organization Details LastModified Time None Recorded Advance Directives Directive N: Payers Encounter Date Sequence Insurance Name Policy Number Policy Diamond Covered Member ID Diamond Member ID Guarantor Name 02/12/2022 1 [facility] [id number] Joss Tellez [id number] Keren Atwood 12/03/2023 1 [employer] (POS) [id number] Joss Tellez [id number] Keren Atwood 12/17/2023 1 [employer] (POS) [id number] Joss Tellez [id number] Keren Atwood 03/09/2024 1 [employer] (POS) [id number] Joss Tellez [id number] Keren Atwood 03/16/2024 1 [employer] (POS) [id number] Joss Tellez [id number] Keren Atwood Notes Date Note Type Note Provider Name and Address Organization Details Recorded Time 02/12/2022 text/html Breast PainRepor alexis bypatient.Location:l eft; upper outer quadrant Onset/Timin-7 days Duration:intermitten t Quality:sharp; throbbing; aching; stabbing Severity:mild Context:change in contraceptives Modifying Factors:touch; pressure Associated Symptoms:no fever; no chills; no skin redness; no nipple discharge; no sore nipples; breasts not full, sore, unable to express milk; no breast swelling; no arm pain; no arm swelling; no chest pain; no malaise;breast lump Patient presents for IUD insertion. GISELA Jon- [address], [place], [address], [facility] 02/12/2022 12:17:25 12/03/2023 text/html Here today for pelvic pain that started about a week ago.Went to [facility] 11/29/23--US was wnl, exam wnl, neg UTI Crampy pain that originates in her lower back in area of SIJ; has a hx of fibromyalgia and muscular issues that can flare up back pain.Has appt with Chiropractor tomorrowIUD confirmed in place on US. Neg pain of abd/flankNeg urinary sx'sNeg GI sx'sNeg N/V/F/C/DNeg Vag d/c, odor, irritation, itchingMonogamous--b ut not SA with spouse for a year. Renetta Jett, ANKITA- [address], [place], [address], [facility] 12/03/2023 12:41:26 12/17/2023 text/html Had a tubal liga tion for contraception about 15 years ago. Pain and pressure started 3-4 years ago. Has IUD placed 2 years ago, no bleeding. Some irregular spotting. Has abdominal and lower back pain cyclically every month; lasts for 7-9 days. Has tried stretching for fibromyalgia, heat/ice packs, cyclobenzaprine, tylenol and ibuprofen without relief. SOFY CRUZ MD [address], [place], [address], [facility] 12/17/2023 16:12:11 03/09/2024 text/html Patient presents for med check of Nextstellis. She was previously seen for pelvic pain that has been unresolved following amenorrhea with IUD. She reports pain started about 3-4 years ago and is cyclic, lasting 7-9 days per month. Previously discussed adenomyosis vs endometriosis vs other chronic pelvic pain syndrome. Discussed trial of hormonal ovulation suppression and started Nextstellis in 12/2023. Since that time, she reports weight gain of 10 lbs and no improvement in pain at all. SOFY CRUZ MD [address], [place], [address], [facility] 03/09/2024 10:09:29 OBGyn Episode Ob Episode Information Episode Created Date Number of Fetuses Patient Bloodtype Patient rh Status Prepregnancy Weight lbs Domestic Partner Domestic Partner Phone Father Name Proofer Black And White Status 11/24/19 22 1 CLOSED Fetus Data First Name Last Name Admitted to NICU Weight (g) Sex Living Outcome Pediatric Complications Fetus ID Race Codes Race Delivery Type M [id number] Vaginal Delivery Serg Calculation Initial Serg Date Initial Exam Date Initial Exam Provider Initial Ultrasound Date Last Menstrual Period Date Ultra Sound Weeks Gestation 0 Eighteen To Twenty Week Serg Update Ultra Sound Date Fundal Height At Umbil Quickening Date Ultra Sound Latest Weeks Gestation Final Serg Confirmed By Final Serg Confirmed Date Final Serg Date Ultra Sound Latest Days Gestation 0 0 Menstrual History Last Menstrual Date Menses Monthly On Bcp Conception Prior Menses Frequency Hcg Plus Date Menarche Onset Age Delivery Information Delivery Date Delivery Type Labor Anesthesia Weeks Gestation Incision Type Labor Labor Length Hrs Delivered By Post Complications Tubal Sterilization Discharge Date Comments 6 Discharge Information Feeding Method Contraceptive Method Maternal HG B and HCT Levels Ob Episode Information Episode Created Date Number of Fetuses Patient Bloodtype Patient rh Status Prepregnancy Weight lbs Domestic Partner Domestic Partner Phone Father Name Proofer Black And White Status 11/24/19 22 1 CLOSED Fetus Data First Name Last Name Admitted to NICU Weight (g) Sex Living Outcome Pediatric Complications Fetus ID Race Codes Race Delivery Type , Induced [id number] Serg Calculation Initial Serg Date Initial Exam Date Initial Exam Provider Initial Ultrasound Date Last Menstrual Period Date Ultra Sound Weeks Gestation 0 Eighteen To Twenty Week Serg Update Ultra Sound Date Fundal Height At Umbil Quickening Date Ultra Sound Latest Weeks Gestation Final Serg Confirmed By Final Serg Confirmed Date Final Serg Date Ultra Sound Latest Days Gestation 0 0 Menstrual History Last Menstrual Date Menses Monthly On Bcp Conception Prior Menses Frequency Hcg Plus Date Menarche Onset Age Delivery Information Delivery Date Delivery Type Labor Anesthesia Weeks Gestation Incision Type Labor Labor Length Hrs Delivered By Post Complications Tubal Sterilization Discharge Date Comments 3 Discharge Information Feeding Method Contraceptive Method Maternal HG B and HCT Levels
--- OUTSIDE RECORDS SUMMARY | 2024-12-12 07:26 | XMS_ITS | CONTINUITY OF CARE DOCUMENT ---
Author Name lauro restrepo Address Unknown Organization [facility] Address [address] [place] [address] Phone [phone] Care Team Providers Care Student Ministries Director Name Role Phone Andrés DAVENPORT, Ricco Unavailable PRUDENCIO JIMENEZ MD Unavailable PRUDENCIO JIMENEZ MD Unavailable [phone] PROBLEMS Condition Status Date Provider Notes Family History of Hyperlipidemia: active Hugo Bowen MD Cardiology examination active Ricco vergara MD Hyperlipidemia active Ricco Bowen MD GERD active Ricco Bowen MD Chest pain active Ricco Bowen MD Neuropathy active Ricco Bowen MD Fibromyalgia active Ricco Bowen MD Neck pain active Ricco Bowen MD ENCOUNTERS Date Type Provider Location Encounter Diag nosis 7 - 7 In-person encounter Office Visit Ricco Bowen MD [facility] Neck pain 3 - 3 In-person encounter Office Visit Ricco Bowen MD [facility] NeuropathyFibromyalgia 4 - 5 In-person encounter Office Visit Ricco Bowen MD [facility] Family History of Hyperlipidemia:Cardiology examinationHyperlipidemiaGERDChest pain VITAL SIGNS Date Observation Value Provider Body Mass Index (Ratio) 27.45 kg/m2 Andrés Bowen MD blood pressure, diastolic 80 mm[Hg] Ke rri Gruenenfelder blood pressure, systolic 122 mm[Hg] Donna ri Gruenenfelder blood pressure, cuff size large Ke rri Gruenenfelder oxygen saturation, oximetry 97 % Megan Grevettenenfelder respiratory rate E&M 16 /min Megan G ruenenfelder pulse rate 112 /min Megan Grevettenenfe lder weight E&M 165 [lb_av] Megan Gruenenfe er height E&M 65 [in_i] Megan Gruenenfe [facility] Body Mass Index (Ratio) 29.88 kg/m2 Andrés Bowen MD blood pressure, diastolic 81 mm[Hg] Li nkLog blood pressure, systolic 117 mm[Hg] Cecelia kLog blood pressure, cuff size large Ta carol Van blood pressure, diastolic 81 mm[Hg] Ta carol Van blood pressure, systolic 117 mm[Hg] Guerrero martina Van oxygen saturation, oximetry 99 % Hawa Van respiratory rate E&M 18 /min Hawa Van pulse rate 110 /min Hawa Van weight E&M 179.6 [lb_av] Hawa Van height E&M 65 [in_i] Hawa Van Body Mass Index (Ratio) 29.45 kg/m2 Brandon Vanegas blood pressure, diastolic 74 mm[Hg] Li nkLogic blood pressure, systolic 122 mm[Hg] Cecelia kLogic blood pressure, resting No Cynt clifford Ely blood pressure, cuff size regular Cy ntclifford Ely blood pressure, diastolic 74 mm[Hg] Nicola Ely blood pressure, systolic 122 mm[Hg] Ankita Ely oxygen saturation, oximetry 98 % Janet Ely pulse rate 85 /min Janet antoine respiratory rate E&M 16 /min Janet Ely height E&M 65 [in_i] Janet antoine weight E&M 177 [lb_av] Janet antoine ALLERGIES No Known Drug Allergies HISTORY OF MEDICATION USE Medication Status Instructions Dates Provider Indications Com ments VITAMIN D TABLET active Take 1 tablet once a week Janet Ely multivitamin tablet active Take 1 tablet once a day Janet Ely pantoprazole 40 mg tablet,delayed release (DR/EC) active Take 1 tablet once a day Janet Ely atorvastatin 20 mg tablet active Take 1 tablet once a day Janet Ely SOCIAL HISTORY Date Observation Value Provider social history E&M S moking History: Tony harmon has never smoked. Ricco Bowen MD social history reviewed E&M revi ewed - no changes required Ricco Bowen MD smoking status Never smoker Megan yeung social history reviewed E&M revi ewed - no changes required Ricco Bowen MD social history E&M S moking History: Tony harmon has never smoked. Ricco Bowen MD smoking status Never smoker Hawa Vital number of grandchildren Ricco Bowen MD social history reviewed E&M revi ewed - no changes required Ricco Bowen MD smoking history, tot al pack/day 1 PPD Janet Ely cigarette use yes Janet faulkner smoking status Former smoker Janet pollock FAMILY HISTORY Family Member Condition Mother Family History of Hy perlipidemia: INSURANCE PROVIDERS Payer name Policy type / Coverage type [place] red green party ID [facility] [id number] ADVANCE DIRECTIVES Name Date DISCUSSED - NO DECISION MADE TREATMENT PLAN Date Name Performer [id number],C, H er stress test 12/2020 showed normal perfusion. Ricco Bowen MD [id number],C,H as sharp shooting neck pain on lateral side as well as back of her neck, up the back of her head. She underwent MRI of neck showing abberrant right subclavian artery for which she was concerned, I assured her this is likely not the cause of her issues but will obtain images and consult with radiologist to get second opinion. I advised her to talk to her PCP and refer to pain management as she is in significant pain. Ricco Bowen MD [id number],C,Tingling and numbness in hands. Ricco Bowen MD [id number],C,On Pantoprazo le. Follows GI. Ricco Bowen MD [id number],C,C ontinues on Atorvastatin. We aim for LDL<70. Ricco Bowen MD [id number],C,I mproved, only reports intermittent chest pain during exercise that resolves with time. Her stress test 12/2020 showed normal perfusion. Ricco Bowen MD [id number],C,O n Pantoprazole. Follows GI and is scheduled for endoscopy soon. Ricco Bowen MD [id number],C,C ontinues on Atorvastatin. We aim for LDL<70. Ricco Bowen MD [id number],C,S he was admitted to [facility] earlier this month for chest pain. She had a stress test at that time showing normal perfusion. She has not had any further chest pain since hospital discharge. Ricco Bowen MD Cardiology: H er stress test 12/2020 showed normal perfusion. Ricco Bowen MD Cardiology:Has sharp shooting neck pain on lateral side as well as back of her neck, up the back of her head. She underwent MRI of neck showing abberrant right subclavian artery for which she was concerned, I assured her this is likely not the cause of her issues but will obtain images and consult with radiologist to get second opinion. I advised her to talk to her PCP and refer to pain management as she is in significant pain. Ricco Bowen MD Cardiology:Tingling and numbness in hands. Ricco Bowen MD Cardiology:On Pantoprazole. Foll ows GI. Ricco Bowen MD Cardiology:Continues on Atorvastatin. We aim for LDL<70. Ricco Bowen MD Cardiology:Improved, only reports intermittent chest pain during exercise that resolves with time. Her stress test 12/2020 showed normal perfusion. Ricco Bowen MD Cardiology hospital follow up :On Pantoprazole. Follows GI and is scheduled for endoscopy soon. Ricco Bowen MD Cardiology hospital follow up :Continues on Atorvastatin. We aim for LDL<70. Ricco Bowen MD Cardiology hospital follow up :She was admitted to [facility] earlier this month for chest pain. She had a stress test at that time showing normal perfusion. She has not had any further chest pain since hospital discharge. Ricco Bowen MD HISTORY OF PROCEDURES Procedure Date Procedure Name Provider Procedure Notes S tatus EKG Ricco Bowen MD complet ed EKG Ricco Bowen MD complet ed EKG Ricco Bowen MD complet ed
--- OUTSIDE RECORDS SUMMARY | 2024-12-12 07:26 | XMS_ITS | Clinical Summary ---
Author Organization [facility] Address [address] [place] [address] Care Team Providers Care Pilot Can Router Name Role Phone Unavailable Primary Care Provider Unavailabl e Source Comments [facility],non-owned Affiliates and Associated Physician Practices is amultiple site organization consisting of ambulatory clinics and hospital sitesin [place], [place], [place] and [place]. This disclosure is being madepursuant to the Care Everywhere program and may not contain all information available regarding this patient. Last updated 18.[facility] Narrative Science Allergies No known active allergies Active Problems Problem Noted Date Diagnosed Date Chest pain 10/23/2021 Social History Tobacco Use Types Packs/Day Years Used Date Smoking Tobacco: Never Assessed AUDIT-C Answer Date Recorded Q1: How often do you have a drink containing alcohol? Never 10/23/2021 Q2: How many drinks containi ng alcohol do you have on a typical day when you are drinking? Patient does not drink Q3: How often do you have si x or more drinks on one occasion? Never 10/23/2021 Comments No Sex and Gender Information Value Date Recorded Sex Assigned at Not on file Legal Sex Female 6:32 PM [employer]ICULTURAL WORK[employer] Gender Identity Not on file Sexual Orientation Not on file Last Filed Vital Signs Vital Sign Reading Time Taken Comments Blood Pressure 127/70 10/23/2021 12:20 PM CDT Pulse 100 10/23/2021 12:20 PM CDT Temperature 36.5 C (97.7 F) 10/23/2021 12:20 PM CDT Respiratory Rate 18 10/23/2021 12:20 PM CDT Oxygen Saturation 100% 10/23/2021 12:20 PM CDT Inhaled Oxygen Concentration - - Weight 74.8 kg (165 lb) 10/23/2021 12:20 PM CDT Height 165.1 cm (5' 5) 10/23/2021 12:20 PM CDT Body Mass Index 27.46 10/23/2021 12:20 PM CDT Plan of Treatment Health Maintenance Due Date Last Done Comments MAMMOGRAM 1984 HIV SCREENING 1999 HEPATITIS C SCREENING 05/20/2002 DTAP/TDAP/TD VACCINES (1 - Tdap) 2003 HEPATITIS B VACCINE (1 of 3 - 19+ 3-dose series) 2003 COVID-19 VACCINE ( - 2023-2 5 season) 2024 DEPRESSION SCREENING 07/07/2024 INFLUENZA VACCINE (Season Ended) 2025 LIPID TESTING 09/10/2026 09/10/2021 ZOSTER VACCINE (1 of 2) 2034 HIB VACCINE Aged Out No longer eligi ble based on patient's age to complete this topic HPV VACCINE Aged Out No longer eligi ble based on patient's age to complete this topic MENINGOCOCCAL (Group B) VACC INE SHARED DECISION-MAKING Aged Out No longer eligibl e based on patient's age to complete this topic MENINGOCOCCAL GROUPS A/C/Y/W VACCINE Aged Out No longer eligible b ased on patient's age to complete this topic PNEUMOCOCCAL VACCINE Aged Out No long er eligible based on patient's age to complete this topic Insurance ANTH ANTH MEDICAID - OUT OF STATE
--- OUTSIDE RECORDS SUMMARY | 2024-12-12 07:46 | XMS_ITS | CONTINUITY OF CARE DOCUMENT ---
Author Name lauro restrepo Address Unknown Organization [facility] Address [address] [place] [address] Phone [phone] Care Team Providers Care Sr. Pricing Analyst Name Role Phone Andrés DAVENPORT, iRcco Unavailable PRUDENCIO JIMENEZ MD Unavailable PRUDENCIO JIMENEZ MD Unavailable [phone] PROBLEMS Condition Status Date Provider Notes Family [...] In-person encounter Office Visit Ricco Bowen MD [place] [facility] Neck pain 3 - 3 In-person encounter Office Visit Ricco Bowen MD [facility] NeuropathyFibromyalgia 4 - 5 In-person encounter Office Visit Ricco Bowen MD [place] [facility] Family History of Hyperlipidemia:Cardiology examinationHyperlipidemiaGERDChest pain [...] er height E&M 65 [in_i] Megan Gruenenfe [facility] Body Mass Index (Ratio) 29.88 kg/m2 Andrés [...] Payer name Policy type / Coverage type [place] red constitution party ID [facility] [id number] ADVANCE DIRECTIVES Name Date DISCUSSED - NO DECISION MADE TREATMENT PLAN Date Name Performer [id number],C, H er stress test 12/2020 showed normal perfusion. Ricco Bowen MD [id number],C,H as sharp shooting neck pain on lateral [...] is in significant pain. Ricco Bowen MD [id number],C,Tingling and numbness in hands. Ricco Bowen MD [id number],C,On Pantoprazo le. Follows GI. Ricco Bowen MD [id number],C,C ontinues on Atorvastatin. We aim for LDL<70. Ricco Bowen MD [id number],C,I mproved, only reports intermittent chest pain during exercise that resolves with time. Her stress test 12/2020 showed normal perfusion. Ricco Bowen MD [id number],C,O n Pantoprazole. Follows GI and is scheduled for endoscopy soon. Ricco Bowen MD [id number],C,C ontinues on Atorvastatin. We aim for LDL<70. Ricco Bowen MD [id number],C,S he was admitted to [facility] ER earlier this month for chest pain. [...] hospital follow up :She was admitted to [facility] ER earlier this month for chest pain. [...]
--- OUTSIDE RECORDS SUMMARY | 2024-12-12 07:46 | XMS_ITS | Continuity of Care Document ---
Author Organization [facility] Address [address] [place] [address] Phone Care Team Providers Care Rn Admissions Name Role Phone Shady Slater Unavailable Unavailable Procedures Procedure Date Office/outpatient Visit, Est Eye Exam Established Pt Eye Exam, New Patient Advance Directives Directive Yes / No Effective Date File Name No Information Encounters Encounter Description Practice Location Reason(s) For Visit Diagnoses Date Provider Providers Copied on Encounter Office/outpat ient Visit, Est [facility], [address] [place] [address] [address], [place], [place], [id number], [place] tel:[phone] [facility] No Information [address] Manuelishnasmalgorzata Shady. [address] [facility] [address], [place], [place], [facility], [place]. tel:[phone] [facility], [address] [place] [address] [address], [place], [place], [id number], [place] tel:[phone] [facility] No Information [address] Preet Heredia. [address] [facility] [address] , [address], [place], [place], [facility], [place]. tel:[phone] [facility], [address], [place], [place], [id number], [place] tel:[phone] [facility] No Information [address] Krish[address]amy [address] [facility] [address], [place], [address], [place]. tel:[phone] Referring Provider: Anthony Vergara [address] [facility] [address], [place], [address]. tel:[phone] Family History Family Member Type Diagnosis Age At Onset No Information Payers Payer name Insurance type Covered libertarian ID Authortomi garcia(s) Medicaid [facility] [id number] Social History Type Description Quantity Date Captured [...]
[2024-12-12] MEDS: ASPIRIN 81 MG CHEWABLE TABLET 324 MG PO (07:59)
[2024-12-12] MEDS: SODIUM CHLORIDE 0.9% IV 1,000 ML 999 ML IV CONT (08:01)
[2024-12-12] MEDS: KETOROLAC 30 MG/ML VIAL (*BKC) IV PUSH (08:04)
[2024-12-12 08:11] LABS: Basophils Absolute Auto 0.1 K/mm3 (0.0-0.1); Basophils Percent Auto 0.6 % (0.2-1.2); Eosinophils Absolute Auto 0.2 K/mm3 (0-0.3); Eosinophils Percent Auto 3.1 % (0-4.4); Hematocrit 40.1 % (37.0-47.0); Hemoglobin 13.5 g/dL (12.0-15.0); Immature Granulocyte Absolute 0.02 K/mm3 (0.00-0.031); Immature Granulocyte Percent A 0.3 % (0-0.5); Lymphocytes Absolute Auto 1.57 K/mm3 (0.9-3.2); Lymphocytes Percent Auto 20.1 % (18.3-44.2); Mean Corpuscular HGB Conc 33.7 g/dl (32-36); Mean Corpuscular Hemoglobin 29.9 pg (26-34); Mean Corpuscular Volume 88.7 fl (80-100); Mean Platelet Volume 9.8 fl (7.4-10.4); Monocytes Absolute Auto 0.5 K/mm3 (0.1-0.6); Monocytes Percent Auto 6.9 % (2.6-8.5); Neutrophils Absolute Auto 5.4 K/mm3 (1.3-6.7); Platelet Count Result 332 k/mm3 (150-375); Red Blood Count 4.52 M/mm3 (4.2-5.4); Red Cell Distribution Width 12.6 % (11.5-14.5); White Blood Count 7.8 K/mm3 (4.5-10.0)
[2024-12-12 08:23] LABS: Alanine Aminotransferase 22 U/L (6-35); Albumin Level 4.7 g/dL (3.5-5.1); Alkaline Phosphatase 55 U/L (38-126); Anion Gap 11 mmol/L (4-12); Aspartate Amino Transferase 35 U/L (14-36); Bilirubin,Total 0.7 mg/dL (0.2-1.3); Blood Urea Nitrogen 12 mg/dL (7-17); Calcium 9.8 mg/dL (8.4-10.2); Carbon Dioxide 19 mmol/L (22-30); Chloride 108 mmol/L (98-107); Estimated CRCL calculation 79 ml/min; Estimated Glomerular Filt Rate > 60; Glucose 91 mg/dL (65-110); Lipase 67 U/L (23-300); Potassium 4.1 mmol/L (3.4-5.0); Sodium 138 mmol/L (137-145); Total Protein 7.8 g/dL (6.3-8.2)
--- NOTE | 2024-12-12 08:24 | ED_ITS ---
HPI - General Adult General Chief complaint: Chest Pain Stated complaint: upper back and chest pains Time Seen by Provider: 12/12/24 07:34 History of Present Illness HPI narrative: Patient is a 39-year-old female who presents ER with chest and upper back pain. Worse with deep breath. Ongoing over last week. Becoming more intense. No exertional dyspnea. No fevers or chills or sweats. No runny nose or sore throat or productive cough. Was seen at an outside hospital and knows CT scan was performed. Her PCP wrote an outpatient order for her to have a CT of the chest if things got worse. She is waiting for insurance approval. Symptoms worsened today so she came here for further evaluation. No history of DVT or PE. No lower extremity swelling. She does have fibromyalgia. Related Data Home Medications ?Medication ?Instructions ?Recorded ?Confirmed ?Last Taken ?Type cholecalciferol (vitamin D3) 1,250 1,250 mcg PO WEEKLY 11/27/21 10/24/22 02/05/22 History mcg (50,000 unit) tablet (Dialyvite Vitamin D3 Max) fluoxetine 20 mg capsule 20 mg PO DAILY 08/12/22 10/24/22 Unknown History tramadol 50 mg tablet 50 mg PO PRN PRN Pain 08/12/22 10/24/22 Unknown History acetaminophen 500 mg tablet 1,000 mg PO QID PRN Pain 09/23/22 10/24/22 Unknown History (Tylenol Extra Strength) diphenhydramine HCl 25 mg tablet 25 mg PO DAILY 10/24/22 10/24/22 Unknown History Allergies Allergy/AdvReac Type Severity Reaction Status Date / Time No Known Allergies Allergy Verified 12/12/24 07:24 Review of Systems 2 Review of Systems: All systems reviewed & are unremarkable except as noted in HPI and below Constitutional: Constitutional: Reports no additional constitutional complaints ENT: Reports system reviewed and no additional complaints, except as documented Cardiovascular: Cardiovascular: Reports no additional cardiovascular complaints Respiratory: Respiratory: Reports no additional respiratory complaints Gastrointestinal: Gastrointestinal: Reports no additional gastrointestinal complaints PMFSH Past Medical History Medical History Anxiety Anxiety Benign neoplasm of adenoid tissue Cholecystectomy planned Fibromyalgia GERD (gastroesophageal reflux disease) Headache Headache Hyperlipidemia Nasopharyngeal mass Obesity PONV (postoperative nausea and vomiting) Surgical History Surgical History History of cholecystectomy History of tonsillectomy History of tubal ligation Hx of appendectomy Social History Social History Smoking packs per day: 0.5 Smoking cigarettes per day: 10.0 Years smoked: 15 Smoking pack-years: 7.50 Smoking status: Former smoker Tobacco type: cigarettes Smoking end date: 07/07/13 Additional smoking assessment comments: 1/2 ppd x 12 years cigarettes Alcohol intake: never Substance use: current Substance use type: marijuana Other substance usage details: 2x a week for insomnia smoking Last use: evenings Lack of Transportation: No Lack of Food: Never True Current Housing: I Have Housing Concerned About Future Housing: No Difficulty Paying Gas/Electric Bills: No Difficulty Paying for Meds: No Currently Unemployed: No Education: High School Diploma/GED Difficulty w/ Childcare or Family Care: No Living arrangements: with family Gender identity (if verbalized by the patient): Female Sexual Orientation (if Verbalized by the Patient): Straight or Heterosexual Spiritual care concerns: No Exam 2 Narrative: GENERAL: Well-appearing, well-nourished, and in no acute distress. HEAD: Normocephalic, atraumatic. ENT: Mucous membranes moist. CHEST: Clear to auscultation. No respiratory distress. HEART: Regular rate and rhythm. Normal peripheral pulses. ABDOMEN: Soft, nontender, nondistended. EXTREMITIES: Normal range of motion. No edema. SKIN: Warm, dry, no rash. NEURO: Alert and oriented x3. PSYCH: Normal mood and affect. Course Course Emergency Course: Labs and imaging unremarkable. EKG normal. Appropriate for discharge home. Troponin negative x2. Vital Signs Vital signs: Vital Signs Temperature 97.8 F 12/12/24 07:31 Pulse Rate 97 12/12/24 07:31 Respiratory Rate 20 12/12/24 07:31 Blood Pressure 116/81 12/12/24 07:31 Pulse Oximetry 98 12/12/24 07:31 Oxygen Delivery Room Air 12/12/24 07:31 Temperature 97.8 F 12/12/24 07:31 Pulse Rate 70 12/12/24 08:42 Respiratory Rate 13 12/12/24 08:42 Blood Pressure 112/72 12/12/24 08:42 Pulse Oximetry 99 12/12/24 08:42 Oxygen Delivery Room Air 12/12/24 07:31 Medical Decision Making Vital Signs Vital Signs: Vital Signs Temperature 97.8 F 12/12/24 07:31 Pulse Rate 97 12/12/24 07:31 Respiratory Rate 20 12/12/24 07:31 Blood Pressure 116/81 12/12/24 07:31 Pulse Oximetry 98 12/12/24 07:31 Oxygen Delivery Room Air 12/12/24 07:31 Temperature 97.8 F 12/12/24 07:31 Pulse Rate 70 12/12/24 08:42 Respiratory Rate 13 12/12/24 08:42 Blood Pressure 112/72 12/12/24 08:42 Pulse Oximetry 99 12/12/24 08:42 Oxygen Delivery Room Air 12/12/24 07:31 Lab Data 12/12/24 07:37 12/12/24 07:37 Labs: Lab Results 12/12/24 12/12/24 Range/Units 07:37 10:24 WBC 7.8 (4.5-10.0) K/mm3 RBC 4.52 (4.2-5.4) M/mm3 Hgb 13.5 (12.0-15.0) g/dL Hct 40.1 (37.0-47.0) % MCV 88.7 (80-100) fl MCH 29.9 (26-34) pg MCHC 33.7 (32-36) g/dl RDW 12.6 (11.5-14.5) % Plt Count 332 (150-375) k/mm3 MPV 9.8 (7.4-10.4) fl Immature Gran % (Auto) 0.3 (0-0.5) % Neut % (Auto) 69.0 (45.5-73.1) % Lymph % (Auto) 20.1 (18.3-44.2) % [place] % (Auto) 6.9 (2.6-8.5) % Eos % (Auto) 3.1 (0-4.4) % Baso % (Auto) 0.6 (0.2-1.2) % Lymph # (Auto) 1.57 (0.9-3.2) K/mm3 [place] # (Auto) 0.5 (0.1-0.6) K/mm3 Eos # (Auto) 0.2 (0-0.3) K/mm3 Baso # (Auto) 0.1 (0.0-0.1) K/mm3 Abs Immat Gran (auto) 0.02 (0.00-0.031) K/mm3 Absolute Neuts (auto) 5.4 (1.3-6.7) K/mm3 Absolute Nucleated RBC 0.000 (0.0-0.012) K/mm3 Nucleated RBC % 0.0 (0.0-0.2) % PT 13.3 (11.1-14.7) Seconds INR 1.0 APTT 30.0 (22.3-36.8) Seconds Sodium 138 (137-145) mmol/L Potassium 4.1 (3.4-5.0) mmol/L Chloride 108 H (98-107) mmol/L Carbon Dioxide 19 L (22-30) mmol/L Anion Gap 11 (4-12) mmol/L BUN 12 (7-17) mg/dL Creatinine 0.89 (0.7-1.0) mg/dL Estim Creat Clear Calc 79 ml/min Estimated GFR > 60 (59 - ) Glucose 91 (65-110) mg/dL Calcium 9.8 (8.4-10.2) mg/dL Total Bilirubin 0.7 (0.2-1.3) mg/dL AST 35 (14-36) U/L ALT 22 (6-35) U/L Alkaline Phosphatase 55 (38-126) U/L Troponin I < 0.012 < 0.012 (0.000-0.034) ng/mL Total Protein 7.8 (6.3-8.2) g/dL Albumin 4.7 (3.5-5.1) g/dL Lipase 67 (23-300) U/L Imaging Data Radiologist's impression: ITS Impressions Chest CTA 12/12/24 09:54 Impression: No evidence of pulmonary embolus, aortic dissection, or aortic aneurysm. Clear lungs. ECG Data EKG #1: ECG completion date: 12/12/24 ECG completion time: 07:32 EKG Interpretation: normal rate (74), sinus rhythm, non-specific ST changes (T-wave inversions in the precordial leads however those were present 04/2023), normal QRS and normal QT Discharge Plan Discharge Clinical Impression: Back pain Patient Disposition: Home Condition: Stable Instructions: Chest Pain (ED) Additional Instructions: Please return to the emergency department if you develop severe and persistent chest pain, difficulty breathing, dizziness, leg swelling or if you are coughing up blood as these can be signs of a medical emergency. Please call your doctor for a follow up appointment to determine the need for further testing. Patient Language: Uzbek Prescriptions: New naproxen 375 mg tablet 375 mg PO BID Qty: 14 0RF No Action Dialyvite Vitamin D3 Max 1,250 mcg (50,000 unit) tablet 1,250 mcg PO WEEKLY Patient Comments: PT TAKES ON FRIDAY tramadol 50 mg tablet 50 mg PO PRN PRN (Reason: Pain) fluoxetine 20 mg capsule 20 mg PO DAILY diphenhydramine HCl 25 mg Tablet 25 mg PO DAILY fluconazole 150 mg tablet 150 mg PO ONCE 1 Days Qty: 1 1RF acetaminophen [Tylenol Extra Strength] 500 mg Tablet 1,000 mg PO QID PRN (Reason: Pain) famotidine 40 mg tablet 40 mg PO DAILY Qty: 30 0RF Follow-up/Referrals: Nomi Monzon MD [Primary Care Provider] - 1 Week Quality HEART score for chest pain patients History: slightly suspicious ECG: non specific repolarization disturbance/LBTB/PM Age: < or = to 45 years Risk factors: no risk factors known Troponin: < or = to 1x normal limit Heart score: 1
[2024-12-12 08:34] LABS: Troponin I < 0.012 ng/mL (0.000-0.034)
[2024-12-12 09:08] LABS: Prothrombin Time 13.3 Seconds (11.1-14.7)
[2024-12-12] MEDS: PROMETHAZINE HCL 25 MG/ML AMPUL 12.5 MG IV PUSH (09:13)
--- NOTE | 2024-12-12 10:25 | ECG_ITS ---
Test Date: 2024-12-12 10:28:58 Measurements Intervals [place] Rate: 55 P: 13 ID: [id number] QRS: 7 QRSD: 78 T: -10 QT: 378 QTc: 364 Interpretive Statements SINUS BRADYCARDIA CONSIDER RIGHT VENTRICULAR CONDUCTION DELAY LOW QRS VOLTAGE IN PRECORDIAL LEADS CONSIDER INFERIOR INFARCT, AGE INDETERMINATE MODERATE T-WAVE ABNORMALITY, CONSIDER ANTERIOR ISCHEMIA ABNORMAL ECG Compared to ECG 12/12/2024 07:32:02 HEART RATE HAS DECREASED Electronically Signed On 12-12-2024 12:35:50 CDT by Matthew Farley D.O.
[2024-12-12 10:50] LABS: Troponin I < 0.012 ng/mL (0.000-0.034)
== END 2024-12-12 11:08 | disposition home or self-care (01) ==
PROVIDERS: Emergency Provider Emergency Medicine; PCP Family Medicine
DX: M54.9 Dorsalgia, unspecified (principal); E78.5 Hyperlipidemia, unspecified; F41.9 Anxiety disorder, unspecified; Z87.891 Personal history of nicotine dependence
CPT/HCPCS: 36415; 71275; 80053; 83690; 84484; 85025; 85610; 85730; 93005; 96361; 96374; 96375; 99284; A9270; J1885; J2550; J7030; Q9967